=== PATIENT | female | born 1950 | race Caucasian/White ===

== ENCOUNTER 2018-05-05 20:49 | Inpatient (IN) | payer OTHER, MEDICAID ==
[~2018-05-05] VITALS: Ht 170.2 cm; Wt 66.7 kg
--- NOTE | ~2018-05-05 | MORECARE ---
CASE MANAGEMENT DISCHARGE SUMMARY PATIENT: SILVIO PATTEN UNIT: [id number] ADM DATE: 05/05/18 AGE: 67 : 50 SEX: F ROOM/BED: D.2312 AUTHOR: FAUSTO,DOC PHYSICIAN: REFERRING PHYSICIAN: ROZ LUNA MD DATE OF SERVICE: 05/08/18 Discharge Plan Patient Name: SILVIO PATTEN Facility: [facility]:[place] : 1950 Planned Disposition: Home Anticipated Discharge Date: Discharge Date: 05/07/2018 Expected LOS: Initial Reviewer: [email or web address] Initial Review Date: 05/05/2018 Generated: 05/08/18 2:01 pm Comments DCP- Discharge Planning Updated by [email or web address]: Olga Carlton on 05/07/18 1:[address] IMM explained and served @11:33 Patient denies any discharge needs at this time. CM will continue to follow and assist with discharge needs. DCP- Discharge Planning Updated by [email or web address]: Olga Carlton on 05/06/18 4:[address] Patient Name: SILVIO PATTEN Admission Status: ER Accout number: [id number] Admission Date: 05-05-2018 : 1950 Admission Diagnosis: Attending: ROZ LUNA Current LOS: 1 Anticipated DC Date: Planned Disposition: Home Primary Insurance: MEDICARE A & B Discharge Planning Comments: CM met with patient at bedside after obtaining verbal consent. Patient states she plans on returning home after discharge. Patient states she would like information on assistance with transportation to appointments. CM gave patient pamphlet on home care assistance. Patient denies any discharge needs at this time. CM will continue to follow and assist as needed for discharge planning / needs. Student Accounts Coordinator: Olga Carlton DCPIA - Discharge Planning Initial Assessment Updated by [email or web address]: Olga Carlton on 05/06/18 5:47 pm * Is the patient Alert and Oriented? Yes * How many steps to enter\exit or inside your home? * PCP Sunny * [facility] * Preadmission Environment Home Alone * ADLs Independent * Other Equipment 02 and neubulizer * List name and contact numbers for known caregivers / representatives who currently or will assist patient after discharge: Corrina Schwarz daughter [phone] * Verbal permission to speak to the caregivers and representatives has been obtained from the patient. N/A * Community resources currently utilized None * Additional services required to return to the preadmission environment? No * Can the patient safely return to the preadmission environment? Yes * Has this patient been hospitalized within the prior 30 days at any hospital? No Coverage Notice Reviewer: [id number] Raulito Carlton Notice Issued Date-Time: 05/07/2018 11:33 Notice Type: IM Discharge Notice Notice Delivered To: Patient Relationship to Patient: Self Foreign Exchange Clerk Name: Delivery Method: - [place] Days: Prior Verbal Notification: Recipient Understood Notice: Yes Recipient Signature: Yes Med Rec Note Co-signed by Attending: Coverage Notice Comment: Last DP export: 05/07/18 2:36 Patient Name: SILVIO PATTEN Page [id number] at 1301 All edits/amendments must be made on the electronic document DICTATION DATE: 05/08/18 1301 GEOPHYSICAL PROSPECTING PERMIT AGENT: BALJINDER 05/08/18 1301 RPT#: [id number] DC DATE:05/07/18 STATUS: DIS IN [facility] [address] [place] [address] END OF REPORT
[~2018-05-05 20:49] MED LIST: ALDACTONE25 MG PO; CARAFATE1 G PO; CHOLESTEROL MED PO; ENULOSE10 G/15 ML PO; GLIPIZIDE10 MG PO; GLUCOPHAGE1000 MG PO; KLONOPIN0.5 MG PO; OMEPRAZOLE20 M1 PO; SPIRIVA18 MCG INH; THEOCHRON200 MG PO; TRADJENTA5 MG PO; ULTRAM50 MG PO; ZOLOFT50 MG PO
[2018-05-05 23:00] VITALS: BP 130/68
[2018-05-05 23:04] VITALS: BP 149/69; BMI 23.0
[2018-05-06] VITALS (15 sets, daily range): BP systolic 111–138; BP diastolic 52–80; Ht 170.2 cm; Wt 66.7 kg
[2018-05-06 00:35] LABS: HEMATOCRIT 26.9 % (36.0-48.0); HEMOGLOBIN 8.5 g/dL (12-16)
[2018-05-06 04:45] LABS: INR 1.21 (0.85-1.17); PROTIME 14.9 SECONDS (11.6-15.0)
[2018-05-06 05:00] LABS: ALBUMIN 2.6 g/dL (3.4-5.0); ALKALINE PHOSPHATASE 130 U/L (46-116); ALT (SGPT) 22 U/L (10-68); CALC OSMOLALITY 282 mosm/kg (275-300); CALCIUM 8.5 mg/dL (8.5-10.1); CARBON DIOXIDE 24.3 mmol/L (21.0-32.0); CHLORIDE - SERUM 108 mmol/L (98-107); CREATININE - SERUM 0.8 mg/dL (0.6-1.3); POTASSIUM - SERUM 4.2 mmol/L (3.5-5.1); PROTEIN - SERUM 6.5 g/dL (6.4-8.2); SODIUM 141 mmol/L (136-145); UREA NITROGEN 13 mg/dL (7-18); eGFR NON AFRICAN AMERICAN 76 mL/min (90-120)
[2018-05-06 05:02] LABS: GLUCOSE 139 mg/dL (74-106)
[2018-05-06 05:08] LABS: BASOPHILS 0.6 % (0-2); EOSINOPHILS 5.3 % (0-7); HEMATOCRIT 27.2 % (36.0-48.0); HEMOGLOBIN 8.4 g/dL (12-16); IMMATURE GRANULOCYTES 0.3 % (0-5); LYMPHOCYTES 24.3 % (15-50); MCH 24.7 pg (26.0-34.0); MCHC 30.9 g/dL (31.0-37.0); MEAN PLATELET VOLUME 10.7 fL (7.4-10.4); MONOCYTES 10.3 % (2-11); NEUTROPHILS 59.2 % (40-80); PLATELET COUNT 113 10x3/uL (130-400); RDW 19.9 % (11.5-14.5); WBC 3.2 10x3/uL (4.8-10.8)
[2018-05-07 02:35] VITALS: BP 130/69
[2018-05-07 03:00] VITALS: BP 126/57
[2018-05-07 05:01] LABS: BASOPHILS 0.7 % (0-2); EOSINOPHILS 5.4 % (0-7); HEMATOCRIT 27.4 % (36.0-48.0); HEMOGLOBIN 8.1 g/dL (12-16); MCH 24.3 pg (26.0-34.0); MCHC 29.6 g/dL (31.0-37.0); MONOCYTES 11.9 % (2-11); PLATELET COUNT 116 10x3/uL (130-400); RBC 3.33 10x6/uL (4.00-5.40); WBC 2.9 10x3/uL (4.8-10.8)
[2018-05-07 05:31] LABS: MCV 82.3 fL (80.0-100.0)
[2018-05-07 05:34] LABS: ALBUMIN 2.6 g/dL (3.4-5.0); ALKALINE PHOSPHATASE 130 U/L (46-116); BILIRUBIN - TOTAL 0.64 mg/dL (0.2-1.3); CALC OSMOLALITY 275 mosm/kg (275-300); CALCIUM 8.2 mg/dL (8.5-10.1); CARBON DIOXIDE 23.3 mmol/L (21.0-32.0); CHLORIDE - SERUM 106 mmol/L (98-107); CREATININE - SERUM 0.8 mg/dL (0.6-1.3); GLUCOSE 117 mg/dL (74-106); PROTEIN - SERUM 6.4 g/dL (6.4-8.2); SODIUM 138 mmol/L (136-145); UREA NITROGEN 10 mg/dL (7-18); eGFR NON AFRICAN AMERICAN 76 mL/min (90-120)
[2018-05-07 05:37] LABS: ALT (SGPT) 29 U/L (10-68)
[2018-05-07 07:00] VITALS: BP 130/69
[2018-05-07] MEDS ORDERED: PROTONIX40 MG PO (11:00)
== END 2018-05-07 12:22 | disposition home or self-care (01) | DRG 378 ==
LOC: D.ER 20:49 → D.ICU 22:06
PROVIDERS: Family Medicine; Internal Medicine Gastroenterology
PROC: 0DB68ZX Excision of Stomach, Via Natural or Artificial Opening Endoscopic, Diagnostic (ICD-10-PCS; principal; 2018-05-06 06:51)
DX: K26.4 Chronic or unspecified duodenal ulcer with hemorrhage (principal); D62 Acute posthemorrhagic anemia; J96.11 Chronic respiratory failure with hypoxia; I85.00 Esophageal varices without bleeding; Z91.14 Patient's other noncompliance with medication regimen; K29.70 Gastritis, unspecified, without bleeding; K21.9 Gastro-esophageal reflux disease without esophagitis; J44.9 Chronic obstructive pulmonary disease, unspecified; E11.9 Type 2 diabetes mellitus without complications; I10 Essential (primary) hypertension

== ENCOUNTER 2018-06-19 20:42 | Inpatient (IN) | payer OTHER, MEDICAID ==
[~2018-06-19] VITALS: Ht 170.2 cm; Wt 76.1 kg
--- NOTE | ~2018-06-19 | MORECARE ---
CASE MANAGEMENT DISCHARGE SUMMARY PATIENT: SILVIO PATTEN UNIT: [id number] ADM DATE: 06/20/18 AGE: 67 : 50 SEX: F ROOM/BED: D.2224 AUTHOR: ROMEO LAMBERT PHYSICIAN: REFERRING PHYSICIAN: ROZ LUNA MD DATE OF SERVICE: 06/23/18 Discharge Plan Patient Name: SILVIO PATTEN Facility: [facility]:[place] : 1950 Planned Disposition: Home Anticipated Discharge Date: 06/23/18 Discharge Date: Expected LOS: 3 Initial Reviewer: [email or web address] Initial Review Date: 06/23/2018 Generated: 06/23/18 12:23 pm DCPIA - Discharge Planning Initial Assessment Updated by [email or web address]: Cherelle Galarza on 06/23/18 11:20 am * Is the patient Alert and Oriented? Yes * How many steps to enter\exit or inside your home? 0/0 * PCP Dr. Correa * [facility] * Preadmission Environment Home Alone * ADLs Independent * Equipment Nebulizer Oxygen * List name and contact numbers for known caregivers / representatives who currently or will assist patient after discharge: Corrina Chong [facility] - [phone] * Verbal permission to speak to the caregivers and representatives has been obtained from the patient. Yes * Community resources currently utilized None * Additional services required to return to the preadmission environment? No * Can the patient safely return to the preadmission environment? Yes * Has this patient been hospitalized within the prior 30 days at any hospital? Yes Patient Name: SILVIO PATTEN Page [id number] at 1123 All edits/amendments must be made on the electronic document DICTATION DATE: 06/23/181121 WEATHERCASTER: BALJINDER 06/23/181121 RPT#: [id number] DC DATE: STATUS: ADM IN [facility] [address] [place] [address] END OF REPORT
--- NOTE | ~2018-06-19 | MORECARE ---
CASE MANAGEMENT DISCHARGE SUMMARY PATIENT: SILVIO PATTEN UNIT: [id number] ADM DATE: 06/20/18 AGE: 67 : 50 SEX: F ROOM/BED: D.2224 AUTHOR: FAUSTODOC PHYSICIAN: REFERRING PHYSICIAN: ROZ LUNA MD DATE OF SERVICE: 06/25/18 Discharge Plan Patient Name: SILVIO PATTEN Facility: [facility]:[place] : 1950 Planned Disposition: Home Anticipated Discharge Date: 06/23/18 Discharge Date: 06/23/2018 Expected LOS: 3 Initial Reviewer: [email or web address] Initial Review Date: 06/23/2018 Generated: 06/25/18 11:35 am Comments DCP- Discharge Planning Updated by [email or web address]: Cherelle Galarza on 06/23/18 10:[address] Patient Name: SILVIO PATTEN Admission Status: ER Accout number: [id number] Admission Date: 06-20-2018 : 1950 Admission Diagnosis:GASTROINTESTINAL HEMORRHAGE, UNSPECIFIED Attending: ROZ LUNA Current LOS: 3 Anticipated DC Date: 06-23-2018 Planned Disposition: Home Primary Insurance: [email or web address] Discharge Planning Comments: CM met with patient and her daughter to discuss discharge planning. She lives alone in a one story house. She states she is independent with ADL's, except her daughter manages her med box and she only drives if "I have to". States she believes her oxygen DME is [employer]. States her daughter is living on her property in a . Her daughter states they will be there for about 6 months. I discussed availability of rehab, SNF, home health and additional DME. She states she does not need DME. Daughter states she would like her to have home health, but she would like to call them and see which one will be a "good fit" for her mother. I gave her the [facility] home health form to review and informed her to call her PCP when ready for [facility]. I also provided patient with SCAT number and informed to call them to get her in the system and informed her to call 48 hours in advance for transportation to medical appointments. They declines needs at this time. CM will continue to follow and assist with discharge planning/needs. Supervisor Feed Mill: Cherelle Galarza DCPIA - Discharge Planning Initial Assessment Updated by [email or web address]: Cherelle Galarza on 06/23/18 11:20 am * Is the patient Alert and Oriented? Yes * How many steps to enter\\exit or inside your home? 0/0 * PCP Dr. Correa * [facility] [address] [place] * Preadmission Environment Home Alone * ADLs Independent * Equipment Nebulizer Oxygen * List name and contact numbers for known caregivers / representatives who currently or will assist patient after discharge: Corrina Chong [facility] - [phone] * Verbal permission to speak to the caregivers and representatives has been obtained from the patient. Yes * Community resources currently utilized None * Additional services required to return to the preadmission environment? No * Can the patient safely return to the preadmission environment? Yes * Has this patient been hospitalized within the prior 30 days at any hospital? Yes Coverage Notice Reviewer: [email or web address] - Cherelle Galarza Notice Issued Date-Time: 06/23/2018 11:30 Notice Type: IM Discharge Notice Notice Delivered To: Patient Relationship to Patient: Self Traffic Court Magistrate Name: Delivery Method: HAND - Hand Delivered [place] Days: Prior Verbal Notification: Recipient Understood Notice: Yes Recipient Signature: Yes Med Rec Note Co-signed by Attending: Coverage Notice Comment: IMM explained, signed, copy given, original placed in MR Last DP export: 06/23/18 10:30 Patient Name: SILVIO PATTEN Page [phone] at 1035 All edits/amendments must be made on the electronic document DICTATION DATE: 06/25/18 1035 LABEL DRIER: BALJINDER 06/25/18 1035 RPT#: [id number] DC DATE:06/23/18 STATUS: DIS IN [facility] [address] [place] [address] END OF REPORT
--- NOTE | ~2018-06-19 | MORECARE ---
CASE MANAGEMENT DISCHARGE SUMMARY PATIENT: SILVIO PATTEN UNIT: [id number] ADM DATE: 06/20/18 AGE: 67 : 50 SEX: F ROOM/BED: D.2224 AUTHOR: ROMEO LAMBERT PHYSICIAN: REFERRING PHYSICIAN: ROZ LUNA MD DATE OF SERVICE: 06/23/18 Discharge Plan Patient Name: SILVIO PATTEN Facility: [facility]:[place] : 1950 Planned Disposition: Home Anticipated Discharge Date: 06/23/18 Discharge Date: Expected LOS: 3 Initial Reviewer: [email or web address] Initial Review Date: 06/23/2018 Generated: 06/23/18 12:30 pm Comments DCP- Discharge Planning Updated by [email or web address]: Cherelle Galarza on 06/23/18 10:[address] Patient Name: SILVIO PATTEN Admission Status: ER Accout number: [id number] Admission Date: 06-20-2018 : 1950 Admission Diagnosis:GASTROINTESTINAL HEMORRHAGE, UNSPECIFIED Attending: ROZ LUNA Current LOS: 3 Anticipated DC Date: 06-23-2018 Planned Disposition: Home Primary Insurance: [employer] Discharge Planning Comments: CM met with patient and her daughter to discuss discharge planning. She lives alone in a one story house. She states she is independent with ADL's, except her daughter manages her med box and she only drives if "I have to". States she believes her oxygen DME is [facility]. States her daughter is living on her property in a . Her daughter states they will be there for about 6 months. I discussed availability of rehab, SNF, home health and additional DME. She states she does not need DME. Daughter states she would like her to have home health, but she would like to call them and see which one will be a "good fit" for her mother. I gave her the [facility] home health form to review and informed her to call her PCP when ready for [facility]. I also provided patient with SCAT number and informed to call them to get her in the system and informed her to call 48 hours in advance for transportation to medical appointments. They declines needs at this time. CM will continue to follow and assist with discharge planning/needs. Manager Drive: Cherelle Galarza DCPIA - Discharge Planning Initial Assessment Updated by [email or web address]: Cherelle Galarza on 06/23/18 11:20 am * Is the patient Alert and Oriented? Yes * How many steps to enter\\exit or inside your home? 0/0 * PCP Dr. Correa * [facility] [address] * Preadmission Environment Home Alone * ADLs Independent * Equipment Nebulizer Oxygen * List name and contact numbers for known caregivers / representatives who currently or will assist patient after discharge: Corrina Schwarz [facility] - [phone] * Verbal permission to speak to the caregivers and representatives has been obtained from the patient. Yes * Community resources currently utilized None * Additional services required to return to the preadmission environment? No * Can the patient safely return to the preadmission environment? Yes * Has this patient been hospitalized within the prior 30 days at any hospital? Yes Coverage Notice Reviewer: [id number] - Cherelle Galarza Notice Issued Date-Time: 06/23/2018 11:30 Notice Type: IM Discharge Notice Notice Delivered To: Patient Relationship to Patient: Self Yoga Coordinator Name: Delivery Method: - [place] Days: Prior Verbal Notification: Recipient Understood Notice: Recipient Signature: Med Rec Note Co-signed by Attending: Coverage Notice Comment: Last DP export: 06/23/18 10:23 Patient Name: SILVIO PATTEN Page [phone] at 1131 All edits/amendments must be made on the electronic document DICTATION DATE: 06/23/18 113 LINOTYPIST: BALJINDER 06/23/18 1130 RPT#: [id number] NM DATE: STATUS: ADM IN [facility] [address] [place] [address] END OF REPORT
[~2018-06-19 20:42] MED LIST changes: +PROTONIX40 MG PO
[2018-06-19 21:07] VITALS: BP 135/85
[2018-06-19 21:11] LABS: ALBUMIN 3.4 g/dL (3.4-5.0); ALKALINE PHOSPHATASE 167 U/L (46-116); ALT (SGPT) 31 U/L (10-68); BILIRUBIN - TOTAL 0.51 mg/dL (0.2-1.3); CALC OSMOLALITY 280 mosm/kg (275-300); CALCIUM 11.4 mg/dL (8.5-10.1); CHLORIDE - SERUM 92 mmol/L (98-107); CREATININE - SERUM 1.6 mg/dL (0.6-1.3); POTASSIUM - SERUM 3.9 mmol/L (3.5-5.1); PROTEIN - SERUM 8.5 g/dL (6.4-8.2); SODIUM 132 mmol/L (136-145); UREA NITROGEN 41 mg/dL (7-18); eGFR NON AFRICAN AMERICAN 34 mL/min (90-120)
[2018-06-19 21:12] LABS: GLUCOSE 206 mg/dL (74-106)
[2018-06-19 21:14] LABS: AMYLASE - SERUM 35 U/L (25-115); LIPASE 310 U/L (73-393)
[2018-06-19 21:15] LABS: BASOPHILS 0.8 % (0-2); EOSINOPHILS 2.2 % (0-7); HEMATOCRIT 30.4 % (36.0-48.0); HEMOGLOBIN 9.3 g/dL (12-16); IMMATURE GRANULOCYTES 0.3 % (0-5); LYMPHOCYTES 14.1 % (15-50); MCH 25.1 pg (26.0-34.0); MCHC 30.6 g/dL (31.0-37.0); MCV 81.9 fL (80.0-100.0); MONOCYTES 7.4 % (2-11); NEUTROPHILS 75.2 % (40-80); RBC 3.71 10x6/uL (4.00-5.40); RDW 24.5 % (11.5-14.5); TROPONIN-I < 0.017 ng/mL (0.000-0.060); WBC 9.6 10x3/uL (4.8-10.8)
[2018-06-19 21:21] LABS: PLATELET COUNT 191 10x3/uL (130-400)
[2018-06-19 21:27] VITALS: BP 109/52
[2018-06-19 22:13] LABS: APPEARANCE CLEAR (CLEAR); COLOR YELLOW (YELLOW); NITRITE NEGATIVE (NEGATIVE); PROTEIN NEGATIVE (NEGATIVE)
[2018-06-19 22:14] LABS: BILIRUBIN NEGATIVE (NEGATIVE); EPITHELIAL CELLS OCC /hpf (0-5); GLUCOSE 250 mg/dL (NEGATIVE); KETONE NEGATIVE (NEGATIVE); RED CELLS - URINE NONE SEEN /hpf (0-5); UROBILINOGEN NORMAL (NORMAL); WHITE CELLS - URINE NSEEN /hpf (0-5)
[2018-06-19 22:25] VITALS: BP 111/72
[2018-06-20] VITALS (15 sets, daily range): BP systolic 101–145; BP diastolic 46–93; Ht 170.2 cm; Wt 76.1 kg
[2018-06-20] MEDS ORDERED: CHRONULAC30 ML PO (02:08)
[2018-06-20] MEDS ORDERED: ULTRAM50 MG PO (02:13)
[2018-06-20 05:19] LABS: BASOPHILS 0.5 % (0-2); EOSINOPHILS 2.7 % (0-7); IMMATURE GRANULOCYTES 0.1 % (0-5); LYMPHOCYTES 15.9 % (15-50); MCH 24.9 pg (26.0-34.0); MCHC 30.5 g/dL (31.0-37.0); MCV 81.8 fL (80.0-100.0); MONOCYTES 6.7 % (2-11); NEUTROPHILS 74.1 % (40-80); RBC 2.97 10x6/uL (4.00-5.40); RDW 24.7 % (11.5-14.5); WBC 9.1 10x3/uL (4.8-10.8)
[2018-06-20 05:22] LABS: HEMATOCRIT 24.3 % (36.0-48.0); HEMOGLOBIN 7.4 g/dL (12-16); PLATELET COUNT 134 10x3/uL (130-400)
[2018-06-20 12:34] LABS: INR 1.15 (0.85-1.17); PROTIME 14.2 SECONDS (11.6-15.0)
[2018-06-20 12:35] LABS: APTT 28.6 SECONDS (22.8-39.4)
[2018-06-20 14:00] LABS: UDS - AMPHET NEGATIVE QUAL (NEGATIVE); UDS - BARB NEGATIVE QUAL (NEGATIVE); UDS - BENZO NEGATIVE QUAL (NEGATIVE); UDS - COCAINE NEGATIVE QUAL (NEGATIVE); UDS - OPIATE POSITIVE QUAL (NEGATIVE); UDS - PCP NEGATIVE QUAL (NEGATIVE); UDS - THC NEGATIVE QUAL (NEGATIVE)
[2018-06-20 15:11] LABS: BASOPHILS 0.4 % (0-2); EOSINOPHILS 4.2 % (0-7); HEMATOCRIT 31.3 % (36.0-48.0); HEMOGLOBIN 9.8 g/dL (12-16); IMMATURE GRANULOCYTES 0.2 % (0-5); LYMPHOCYTES 17.7 % (15-50); MCH 26.1 pg (26.0-34.0); MCHC 31.3 g/dL (31.0-37.0); MCV 83.2 fL (80.0-100.0); MONOCYTES 7.5 % (2-11); RBC 3.76 10x6/uL (4.00-5.40); RDW 21.1 % (11.5-14.5); WBC 5.5 10x3/uL (4.8-10.8)
[2018-06-20 15:12] LABS: PLATELET COUNT 82 10x3/uL (130-400)
[2018-06-20 15:27] LABS: ANION GAP 10.7 mmol/L (8-16); CALCIUM 9.3 mg/dL (8.5-10.1); CARBON DIOXIDE 28.2 mmol/L (21.0-32.0); CREATININE - SERUM 1.3 mg/dL (0.6-1.3); POTASSIUM - SERUM 3.9 mmol/L (3.5-5.1)
[2018-06-20 21:26] LABS: BASOPHILS 0.4 % (0-2); EOSINOPHILS 4.7 % (0-7); HEMATOCRIT 30.9 % (36.0-48.0); HEMOGLOBIN 9.7 g/dL (12-16); IMMATURE GRANULOCYTES 0.2 % (0-5); LYMPHOCYTES 19.2 % (15-50); MCH 26.2 pg (26.0-34.0); MCHC 31.4 g/dL (31.0-37.0); MCV 83.5 fL (80.0-100.0); MONOCYTES 10.3 % (2-11); NEUTROPHILS 65.2 % (40-80); PLATELET COUNT 89 10x3/uL (130-400); RDW 21.2 % (11.5-14.5); WBC 4.9 10x3/uL (4.8-10.8)
[2018-06-21] VITALS (10 sets, daily range): BP systolic 101–126; BP diastolic 56–75
[2018-06-21 03:46] LABS: BASOPHILS 0.8 % (0-2); EOSINOPHILS 6.1 % (0-7); HEMATOCRIT 30.7 % (36.0-48.0); HEMOGLOBIN 9.6 g/dL (12-16); IMMATURE GRANULOCYTES 0.3 % (0-5); LYMPHOCYTES 20.5 % (15-50); MCH 26.1 pg (26.0-34.0); MCHC 31.3 g/dL (31.0-37.0); MCV 83.4 fL (80.0-100.0); MONOCYTES 9.6 % (2-11); NEUTROPHILS 62.7 % (40-80); RBC 3.68 10x6/uL (4.00-5.40); RDW 21.6 % (11.5-14.5); WBC 3.8 10x3/uL (4.8-10.8)
[2018-06-21 03:47] LABS: PLATELET COUNT 108 10x3/uL (130-400)
[2018-06-21 03:56] LABS: INR 1.18 (0.85-1.17); PROTIME 14.5 SECONDS (11.6-15.0)
[2018-06-21 04:04] LABS: ALBUMIN 2.7 g/dL (3.4-5.0); ANION GAP 9.2 mmol/L (8-16); BILIRUBIN - TOTAL 0.68 mg/dL (0.2-1.3); CALCIUM 8.5 mg/dL (8.5-10.1); CARBON DIOXIDE 29.5 mmol/L (21.0-32.0); POTASSIUM - SERUM 3.7 mmol/L (3.5-5.1); PROTEIN - SERUM 6.6 g/dL (6.4-8.2)
[2018-06-21 04:07] LABS: CREATININE - SERUM 0.9 mg/dL (0.6-1.3)
[2018-06-21 13:31] LABS: BASOPHILS 0.3 % (0-2); EOSINOPHILS 4.8 % (0-7); HEMATOCRIT 29.9 % (36.0-48.0); HEMOGLOBIN 9.1 g/dL (12-16); IMMATURE GRANULOCYTES 0.3 % (0-5); LYMPHOCYTES 14.5 % (15-50); MCHC 30.4 g/dL (31.0-37.0); RDW 21.8 % (11.5-14.5); WBC 3.3 10x3/uL (4.8-10.8)
[2018-06-21 13:44] LABS: MCV 85.4 fL (80.0-100.0); NEUTROPHILS 71.11 % (40-80); PLATELET COUNT 85 10x3/uL (130-400)
[2018-06-21 14:04] LABS: PLATELET ESTIMATE DECREASED
[2018-06-22] VITALS (7 sets, daily range): BP systolic 107–138; BP diastolic 51–81
[2018-06-22 06:24] LABS: ALBUMIN 2.4 g/dL (3.4-5.0); ALKALINE PHOSPHATASE 93 U/L (46-116); ALT (SGPT) 22 U/L (10-68); AMYLASE - SERUM 54 U/L (25-115); BILIRUBIN - TOTAL 0.52 mg/dL (0.2-1.3); CALCIUM 7.5 mg/dL (8.5-10.1); CARBON DIOXIDE 25.1 mmol/L (21.0-32.0); CHLORIDE - SERUM 107 mmol/L (98-107); CREATININE - SERUM 0.8 mg/dL (0.6-1.3); LIPASE 369 U/L (73-393); POTASSIUM - SERUM 3.6 mmol/L (3.5-5.1); PROTEIN - SERUM 6.1 g/dL (6.4-8.2); SODIUM 139 mmol/L (136-145); eGFR NON AFRICAN AMERICAN 76 mL/min (90-120)
[2018-06-22 06:28] LABS: CALC OSMOLALITY 282 mosm/kg (275-300); GLUCOSE 170 mg/dL (74-106); UREA NITROGEN 15 mg/dL (7-18)
[2018-06-22 07:27] LABS: BASOPHILS 0.7 % (0-2); EOSINOPHILS 5.9 % (0-7); HEMATOCRIT 28.2 % (36.0-48.0); HEMOGLOBIN 8.6 g/dL (12-16); LYMPHOCYTES 18.1 % (15-50); MCH 25.8 pg (26.0-34.0); MCHC 30.5 g/dL (31.0-37.0); MCV 84.7 fL (80.0-100.0); MONOCYTES 9.8 % (2-11); NEUTROPHILS 65.5 % (40-80); PLATELET COUNT 89 10x3/uL (130-400); RBC 3.33 10x6/uL (4.00-5.40); RDW 21.8 % (11.5-14.5); WBC 2.9 10x3/uL (4.8-10.8)
[2018-06-23 00:18] VITALS: BP 116/55
[2018-06-23 04:29] VITALS: BP 138/58
[2018-06-23 05:17] LABS: BASOPHILS 0.3 % (0-2); EOSINOPHILS 4.3 % (0-7); HEMATOCRIT 30.2 % (36.0-48.0); HEMOGLOBIN 9.3 g/dL (12-16); LYMPHOCYTES 17.7 % (15-50); MCH 26.1 pg (26.0-34.0); MCHC 30.8 g/dL (31.0-37.0); MCV 84.6 fL (80.0-100.0); MONOCYTES 9.7 % (2-11); PLATELET COUNT 85 10x3/uL (130-400); RBC 3.57 10x6/uL (4.00-5.40); RDW 21.5 % (11.5-14.5)
[2018-06-23 05:49] LABS: ALBUMIN 2.5 g/dL (3.4-5.0); ALKALINE PHOSPHATASE 110 U/L (46-116); AMYLASE - SERUM 43 U/L (25-115); BILIRUBIN - TOTAL 0.66 mg/dL (0.2-1.3); CALCIUM 7.9 mg/dL (8.5-10.1); CARBON DIOXIDE 25.8 mmol/L (21.0-32.0); CHLORIDE - SERUM 108 mmol/L (98-107); CREATININE - SERUM 0.6 mg/dL (0.6-1.3); GLUCOSE 141 mg/dL (74-106); LIPASE 285 U/L (73-393); POTASSIUM - SERUM 3.5 mmol/L (3.5-5.1); PROTEIN - SERUM 6.4 g/dL (6.4-8.2); SODIUM 140 mmol/L (136-145); eGFR NON AFRICAN AMERICAN > 90 mL/min (90-120)
[2018-06-23 06:18] LABS: ALT (SGPT) 30 U/L (10-68); CALC OSMOLALITY 279 mosm/kg (275-300); UREA NITROGEN 11 mg/dL (7-18)
[2018-06-23 08:14] VITALS: BP 144/76
[2018-06-23] MEDS ORDERED: CARAFATE1 G PO (11:43)
[2018-06-23] MEDS ORDERED: PEPCID40 MG PO (11:44)
[2018-06-23] MEDS ORDERED: PROTONIX40 MG PO (11:44)
== END 2018-06-23 13:55 | disposition home or self-care (01) | DRG 378 ==
LOC: D.ER 20:42 → D.M2 06-20 01:24 → OBSVTIME 06-20 01:24 → D.ICU 06-20 01:25 → D.MS 06-20 01:25 → D.ICU 06-20 14:11 → D.MS 06-21 20:30
PROVIDERS: Family Medicine; Internal Medicine Gastroenterology; Internal Medicine Nephrology
PROC: 0W3P8ZZ Control Bleeding in Gastrointestinal Tract, Via Natural or Artificial Opening Endoscopic (ICD-10-PCS; principal; 2018-06-20 13:30)
DX: K26.4 Chronic or unspecified duodenal ulcer with hemorrhage (principal); N17.9 Acute kidney failure, unspecified; E87.1 Hypo-osmolality and hyponatremia; K22.10 Ulcer of esophagus without bleeding; F17.213 Nicotine dependence, cigarettes, with withdrawal; J96.11 Chronic respiratory failure with hypoxia; E86.0 Dehydration; I10 Essential (primary) hypertension; R78.5 Finding of other psychotropic drug in blood; E11.9 Type 2 diabetes mellitus without complications; J44.9 Chronic obstructive pulmonary disease, unspecified; K80.20 Calculus of gallbladder without cholecystitis without obstruction; K25.9 Gastric ulcer, unspecified as acute or chronic, without hemorrhage or perforation

== ENCOUNTER 2018-10-20 05:39 | Day surgery (SDC) | payer OTHER, MEDICAID ==
[~2018-10-20] VITALS: Ht 170.2 cm; Wt 63.6 kg
[~2018-10-20 05:39] MED LIST changes: +CHRONULAC30 ML PO; +PEPCID40 MG PO
[2018-10-20] MEDS ORDERED: ZOFRAN ODT4 MG/UDTAB (06:25)
[2018-10-20] MEDS ORDERED: UNKNOWN ANTIBIOTIC (06:26)
[2018-10-20 06:30] LABS: BASOPHILS 0.6 % (0-2); EOSINOPHILS 11.2 % (0-7); HEMOGLOBIN 11.2 g/dL (12-16); IMMATURE GRANULOCYTES 0.2 % (0-5); LYMPHOCYTES 17.8 % (15-50); MCH 30.9 pg (26.0-34.0); MCV 96.7 fL (80.0-100.0); MEAN PLATELET VOLUME 10.7 fL (7.4-10.4); MONOCYTES 10.1 % (2-11); NEUTROPHILS 60.1 % (40-80); RBC 3.62 10x6/uL (4.00-5.40); RDW 15.8 % (11.5-14.5); WBC 4.8 10x3/uL (4.8-10.8)
[2018-10-20 06:49] VITALS: BP 113/68; Ht 170.2 cm; Wt 63.6 kg
[2018-10-20 06:49] LABS: PLATELET COUNT 173 10x3/uL (130-400)
[2018-10-20 06:56] LABS: ALBUMIN 2.7 g/dL (3.4-5.0); ANION GAP 13.5 mmol/L (8-16); BILIRUBIN - TOTAL 0.41 mg/dL (0.2-1.3); CALCIUM 8.8 mg/dL (8.5-10.1); CARBON DIOXIDE 25.1 mmol/L (21.0-32.0); POTASSIUM - SERUM 3.6 mmol/L (3.5-5.1); PROTEIN - SERUM 6.9 g/dL (6.4-8.2)
--- NOTE | 2018-10-20 07:15 | NUR ---
0705 CHEMISTRY RESULTS AVAILABLE TO VIEW. BS=64. ORDER FROM ANESTHESIA RECEIVED FOR 1/2 AMP D50W.
--- NOTE | 2018-10-20 07:33 | NUR ---
0725 REPEAT BLOOD SUGAR DONE AFTER D50W 1/2 AMP GIVEN. RESULTS ARE 137 AND REPORTED TO TIFFANY HAY CRNA.
[2018-10-20 07:35] LABS: INR 1.2 (0.85-1.17); PROTIME 14.7 SECONDS (11.6-15.0)
--- NOTE | 2018-10-20 09:21 | NUR ---
DC INSTRUCTIONS GIVEN TO PT. STATES UNDERSTANDING. DC'D IV CATH FULLY INTACT.
--- NOTE | 2018-10-20 10:18 | NUR ---
PT LEFT UNIT VIA WC AT 0913
--- NOTE | 2018-10-20 15:55 | OP ---
PATIENT NAME: SILVIO PATTEN MEDICAL RECORD: [id number] :[birth year] LOCATION:[facility] ADMISSION DATE: SURGEON: MARCIANO MOONEY MD DATE OF OPERATION: 10/20/2018 PROCEDURE: EGD with biopsy. INDICATIONS: Ms. Patten is a 68-year-old woman with a history of cirrhosis secondary to alcohol. She had an upper GI bleed last fall. On 06/20/2018, she underwent an EGD (Dr. Goldstein) with findings of a large nonhemorrhagic esophageal varices, gastropathy of portal hypertension, htzh-if-nnihwhqj gastritis, duodenitis and a hemorrhagic linear ulcer measuring approximately 3.5 cm in the C-loop which was injected with a total of 2.5 cc of 1:10,000 epinephrine with good results. Additionally, she has a history of cholelithiasis. She has been on Protonix 40 mg p.o. b.i.d. She presents for followup EGD. PREMEDICATIONS: Total IV anesthesia (propofol 200 mg). INSTRUMENT: Olympus video gastroscope. PROCEDURE AND FINDINGS: After receiving informed consent, posterior pharynx was anesthetized with Cetacaine spray. She was placed in left lateral decubitus position and sedated as per anesthesia. After achieving adequate level of sedation, gastroscope was introduced per orally and advanced into the duodenum without difficulty. Esophagus was remarkable for grade III esophageal varices, nonhemorrhagic, extending from the nsf-zm-xlszrs esophagus. There was no stigmata of recent bleeding. Small hiatal hernia was present. Gastric mucosa was notable for a reticulated pattern in the body and fundus of the stomach consistent with gastropathy of portal hypertension. There were a few brown pigments spots in the body of the stomach consistent with mild bleeding. There was rjwp-er-gumwylsh patchy erythema in the antrum and antral biopsies were obtained to rule out Helicobacter pylori. No distinct varices were appreciated in the cardia or fundus. Pylorus was patent and competent. Duodenal mucosa was without erythema or ulcers and appeared normal through the second portion. The duodenum ulcer had healed. Gastroscope was then withdrawn. Ms. Patten tolerated the procedure well, no immediate complications. ASSESSMENT: 1. Grade III esophageal varices, nonhemorrhagic. 2. Small hiatal hernia. 3. Mild gastropathy of portal hypertension. 4. Mild gastritis. 5. Healed duodenal ulcer. RECOMMENDATIONS: 1. Continue propranolol 20 mg 3 times a day. 2. Continue Protonix 40 mg p.o. b.i.d. TRANSINT:[id number] Voice Confirmation ID: [id number] DOCUMENT ID: [id number] OPERATIVE REPORT [id number] SILVIO PATTEN TERRI MD at 1555 CC: SALLY COLVIN MD [id number] DICTATION DATE: 10/20/18826 WOOD GOUGER: 10/20/18 114[address] [facility] 10/20/18 [id number] [place] [address]
== END 2018-10-20 09:45 | disposition home or self-care (01) ==
LOC: D.OPS 05:39
PROVIDERS: Anesthesiology; ATTEND Internal Medicine Gastroenterology
DX: K70.30 Alcoholic cirrhosis of liver without ascites (principal); I85.10 Secondary esophageal varices without bleeding; K44.9 Diaphragmatic hernia without obstruction or gangrene; K76.6 Portal hypertension; K31.89 Other diseases of stomach and duodenum; K29.50 Unspecified chronic gastritis without bleeding; Z79.899 Other long term (current) drug therapy; Z01.812 Encounter for preprocedural laboratory examination

== ENCOUNTER 2019-07-26 10:44 | Inpatient (IN) | payer OTHER, MEDICAID ==
[2019-07-26] VITALS (12 sets, daily range): BP systolic 92–127; BP diastolic 48–78; BMI 20.7
[~2019-07-26] VITALS: Ht 170.2 cm; Wt 60.0 kg
[~2019-07-26 10:44] MED LIST changes: +UNKNOWN ANTIBIOTIC; +ZOFRAN ODT4 MG/UDTAB PO
[2019-07-26 11:33] LABS: ANION GAP 11.7 mmol/L (8-16); BASOPHILS 0.4 % (0-2); CALCIUM 9.1 mg/dL (8.5-10.1); CARBON DIOXIDE 30.5 mmol/L (21.0-32.0); CREATININE - SERUM 1.5 mg/dL (0.6-1.3); EOSINOPHILS 1.9 % (0-7); HEMATOCRIT 29.4 % (36.0-48.0); HEMOGLOBIN 9.4 g/dL (12-16); IMMATURE GRANULOCYTES 0.2 % (0-5); LYMPHOCYTES 8.4 % (15-50); MCH 30.2 pg (26.0-34.0); MCV 94.5 fL (80.0-100.0); MEAN PLATELET VOLUME 11.4 fL (7.4-10.4); MONOCYTES 6.5 % (2-11); NEUTROPHILS 82.6 % (40-80); POTASSIUM - SERUM 5.2 mmol/L (3.5-5.1); RBC 3.11 10x6/uL (4.00-5.40); RDW 14.2 % (11.5-14.5); WBC 10.7 10x3/uL (4.8-10.8)
[2019-07-26 11:35] LABS: ALBUMIN 2.7 g/dL (3.4-5.0); BILIRUBIN - TOTAL 0.81 mg/dL (0.2-1.3); PROTEIN - SERUM 6.9 g/dL (6.4-8.2)
[2019-07-26 11:40] LABS: PLATELET COUNT 255 10x3/uL (130-400)
[2019-07-26 11:58] LABS: APTT 33.2 SECONDS (22.8-39.4); INR 1.31 (0.85-1.17); PROTIME 15.7 SECONDS (11.6-15.0)
--- NOTE | 2019-07-26 13:57 | NUR ---
PT HAD 600 MLS BLOODY DARK EMESIS WHILE IN ER.
--- NOTE | 2019-07-26 13:58 | NUR ---
PT NPO DURING ENTIRE ED STAY
--- NOTE | 2019-07-26 14:15 | NUR ---
DR CHA PAGED GIVEN UPDATE. NEW ORDERS RECEIVED. CONSENTS OBTAINED
--- NOTE | 2019-07-26 14:20 | NUR ---
PT ARRIVED VSS ADMIT COMPLETE DENIES NEEDS WILL CONTIUE TO MONITOR
--- NOTE | 2019-07-26 15:25 | NUR ---
GI TEAM AT BEDSIDE SETTING UP FOR PROCEDURE. PT VOMITTING MAROON EMESIS.
--- NOTE | 2019-07-26 16:29 | NUR ---
DR CHA FINISHED AT BEDSIDE EGD WITH 4 BANDS PLACED.
--- NOTE | 2019-07-26 17:00 | NUR ---
FAMILY AT BEDSIDE GIVEN UDPATE. WILL CONTINUE TO MONITOR
--- NOTE | 2019-07-26 19:00 | NUR ---
REPORT RECEIVED, SHIFT ASSESSMENT COMPLETE, PT IS ALERT AND ORIENTED, ON 2L NC WITH 97% O2 SAT. ALL PPP, VSS, CALL LIGHT IN REACH
--- NOTE | 2019-07-26 21:11 | NUR ---
PT RESTING AT THIS TIME, WILL CON'T TO MONITOR
--- NOTE | 2019-07-26 23:25 | NUR ---
REASSESSMENT COMPLETE, NO CHANGES NOTED, WILL CON'T TO MONITOR
[2019-07-27] VITALS (12 sets, daily range): BP systolic 90–122; BP diastolic 50–81; Ht 170.2 cm; Wt 60.0 kg
--- NOTE | 2019-07-27 01:15 | NUR ---
PT RESTING WITH EYES CLOSED, VSS, CALL LIGHT IN REACH
--- NOTE | 2019-07-27 03:20 | NUR ---
REASSESSMENT COMPLETE, PT UPTO BSC AT THIS TIME, TOLERATED WELL
[2019-07-27 03:55] LABS: BASOPHILS 0.5 % (0-2); EOSINOPHILS 3.5 % (0-7); HEMATOCRIT 27.8 % (36.0-48.0); IMMATURE GRANULOCYTES 0.1 % (0-5); LYMPHOCYTES 15.9 % (15-50); MCH 29.3 pg (26.0-34.0); MCHC 32.4 g/dL (31.0-37.0); MEAN PLATELET VOLUME 10.8 fL (7.4-10.4); MONOCYTES 8.7 % (2-11); NEUTROPHILS 71.3 % (40-80); RBC 3.07 10x6/uL (4.00-5.40); RDW 16.3 % (11.5-14.5); WBC 9.1 10x3/uL (4.8-10.8)
[2019-07-27 04:24] LABS: ALBUMIN 2.6 g/dL (3.4-5.0); BILIRUBIN - TOTAL 0.54 mg/dL (0.2-1.3); CALCIUM 8.6 mg/dL (8.5-10.1); CARBON DIOXIDE 28.9 mmol/L (21.0-32.0); MAGNESIUM - SERUM 1.6 mg/dL (1.8-2.4); PROTEIN - SERUM 6.2 g/dL (6.4-8.2)
[2019-07-27 04:42] LABS: ANION GAP 12.4 mmol/L (8-16); CREATININE - SERUM 1.9 mg/dL (0.6-1.3); POTASSIUM - SERUM 4.3 mmol/L (3.5-5.1)
[2019-07-27 04:47] LABS: MCV 90.6 fL (80.0-100.0); PLATELET COUNT 157 10x3/uL (130-400)
--- NOTE | 2019-07-27 05:22 | NUR ---
PT RESTING COMFORTABLY AT THIS TIME, NO NEEDS NOTED, WILL CON'T TO MONITOR
--- NOTE | 2019-07-27 07:15 | NUR ---
REPORT RECEIVED. ASSESSMENT COMPLETE PER FLOW SHEET. VSS PT GIVEN BREAKFAST DENIES NEEDS WILL CONTINUE TKO MONITOR
--- NOTE | 2019-07-27 07:40 | NUR ---
DR CHA AT BEDSIDE GIVEN UDPATE. NEW ORDERS RECEIVECD
--- NOTE | 2019-07-27 09:00 | NUR ---
PT SLEEPING COMFORTABLY NO NEW CHANGES WILL CONTINUE TO MONITOR
--- NOTE | 2019-07-27 11:00 | NUR ---
NO NEW CHANGES PT RESTING COMFORTABLY WILL CONTINUE TOMONITOR
--- NOTE | 2019-07-27 13:00 | NUR ---
GIVEN ICE WATER PER REQUEST DENIES FURTHER NEEDS
--- NOTE | 2019-07-27 15:00 | NUR ---
NO NEW CHANGES PT ASSISTED UP OOB TO BEDSIDE COMMODE 150 CC NOTED
--- NOTE | 2019-07-27 16:55 | NUR ---
REPORT CALLED TO 2210 VSS UPON TRANSFER. TRANSFERED VIA WHEELCHAIR
[2019-07-28 00:30] VITALS: BP 154/65
[2019-07-28 05:18] LABS: ALBUMIN 2.4 g/dL (3.4-5.0); ANION GAP 13.1 mmol/L (8-16); BILIRUBIN - TOTAL 0.4 mg/dL (0.2-1.3); CALCIUM 8.4 mg/dL (8.5-10.1); CARBON DIOXIDE 25.7 mmol/L (21.0-32.0); MAGNESIUM - SERUM 1.7 mg/dL (1.8-2.4); POTASSIUM - SERUM 3.8 mmol/L (3.5-5.1); PROTEIN - SERUM 5.8 g/dL (6.4-8.2)
[2019-07-28 05:30] VITALS: BP 148/64
[2019-07-28 05:36] LABS: CREATININE - SERUM 1.3 mg/dL (0.6-1.3)
[2019-07-28 05:58] LABS: BASOPHILS 0.3 % (0-2); EOSINOPHILS 4.5 % (0-7); IMMATURE GRANULOCYTES 0.3 % (0-5); LYMPHOCYTES 16.5 % (15-50); MCH 29.5 pg (26.0-34.0); MCHC 32.4 g/dL (31.0-37.0); MCV 90.9 fL (80.0-100.0); MEAN PLATELET VOLUME 10.5 fL (7.4-10.4); MONOCYTES 7.7 % (2-11); NEUTROPHILS 70.7 % (40-80); RDW 15.9 % (11.5-14.5)
[2019-07-28 05:59] LABS: HEMATOCRIT 21.9 % (36.0-48.0); PLATELET COUNT 101 10x3/uL (130-400); RBC 2.41 10x6/uL (4.00-5.40)
[2019-07-28 06:00] LABS: HEMOGLOBIN 7.1 g/dL (12-16)
--- NOTE | 2019-07-28 06:27 | NUR ---
Patient had critical lab HGB of 7.1. Talked to Gisele Addison on phone. Order to repeat CBC. If HGB is still below 8 then type and cross patient and hang 2 units of PRBC's. Will pass this message on to the dayshift nurse.
[2019-07-28 06:51] LABS: INR 1.2 (0.85-1.17); PROTIME 14.6 SECONDS (11.6-15.0)
[2019-07-28 06:53] LABS: % SATURATION 19 % (15-55); IRON 44 ug/dl (35-150); TOTAL IRON BIND CAPACITY 231 ug/dl (260-445); UNSAT IRON BIND CAPACITY 187 ug/dl (150-375)
[2019-07-28 07:01] LABS: BASOPHILS 0.8 % (0-2); EOSINOPHILS 5.8 % (0-7); LYMPHOCYTES 15.9 % (15-50); MCH 29.3 pg (26.0-34.0); MCHC 32.3 g/dL (31.0-37.0); MCV 90.9 fL (80.0-100.0); MEAN PLATELET VOLUME 10.6 fL (7.4-10.4); MONOCYTES 6.8 % (2-11); NEUTROPHILS 70.7 % (40-80); PLATELET COUNT 96 10x3/uL (130-400); RBC 2.42 10x6/uL (4.00-5.40); RDW 15.9 % (11.5-14.5)
[2019-07-28 07:28] LABS: HEMOGLOBIN 7.1 g/dL (12-16)
--- NOTE | 2019-07-28 07:48 | NUR ---
PT SITTING UP IN BED. RR EVEN AND UNLABORED. USUALLY ON 2L NC, HOWEVER, PT DOES NOT HAVE IT ON AT THE MOMENT. MALT LIQUORS SALES SUPERVISOR AT BEDISDE. IS AWARE OF HGB 7.1. BLOOD BANK IS AWARE OF 2 UNITS PRBC ORDER. PT DENIES NEEDS OR PAIN AT THIS TIME. AXO. CALL LIGHT WITHIN REACH. BED IN LOWEST POSITION. WILL CONTINUE TO MONITOR.
[2019-07-28 08:40] VITALS: BP 122/51
--- NOTE | 2019-07-28 08:40 | NUR ---
BLOOD INFUSION INITIATED TO PIV RIGHT FOREARM. BP 118/61. PULSE 81. RR 16. TEMP 98.8. O2 98% ON 2L NC. INITIATED AND INFORMATION CHECKED WITH CARLY CAM. BLOOD INFUSING @75 MLS/HR. AWAKE, AXO. DENIES NEEDS AT THIS TIME. WILL CONTINUE TO MONITOR.
--- NOTE | 2019-07-28 13:08 | NUR ---
LEFT FOREARM IV RED AND SWOLLEN. IV REMOVED AND DRESSING APPLIED TO SITE. 22G IV RESITED TO LEFT FOREARM X1 ATTEMPT
[2019-07-28 13:45] VITALS: BP 134/61
[2019-07-28 16:56] VITALS: BP 124/49
--- NOTE | 2019-07-28 17:04 | NUR ---
2ND BAG PRBC INFUSING (SEE BLOOD TRANSFUSION SHEET FOR VS AND TIMES) @ 100MLS/HR. PT IS TOLERATING WELL. WILL CONTINUE TO MONITOR.
--- NOTE | 2019-07-28 17:28 | NUR ---
I have reviewed this patient and I concur with the Shift Assessment completed by the Licensed Practical Nurse today this shift.
[2019-07-28 18:40] LABS: APPEARANCE CLEAR (CLEAR); BILIRUBIN NEGATIVE (NEGATIVE); COLOR YELLOW (YELLOW); GLUCOSE 250 mg/dL (NEGATIVE); KETONE NEGATIVE (NEGATIVE); NITRITE NEGATIVE (NEGATIVE); PROTEIN NEGATIVE (NEGATIVE); UROBILINOGEN NORMAL (NORMAL)
[2019-07-28 20:22] LABS: HEMATOCRIT 30.2 % (36.0-48.0); HEMOGLOBIN 9.9 g/dL (12-16)
--- NOTE | 2019-07-28 20:50 | NUR ---
AMBULATED TO BR AND BACK TO BED. ABD DISTENDED. REPORTS LAST BM TODAY. C/O MILD ABD PAIN. PROTONIX DRIP AND SANDOSTATIN DRIP INFUSING @ 10 MLHR IN RT WRIST AND RT FOREARM. RESP NONLABORED. O2 @ 2L/NC. TELEMETRY SHOWS SR WITH RATE OF 77. SR ELEVATED X2. CL IN REACH. ALERT AND ORIENTED X4.
[2019-07-28 20:58] VITALS: BP 152/76
--- NOTE | 2019-07-28 23:40 | NUR ---
FSBS RECHECKED AND WAS 130. CONSUMED 100% OF BEDTIME SNACK. CL IN REACH. NO DISTRESS.
[2019-07-29] VITALS: BP 156/60
--- NOTE | 2019-07-29 02:04 | NUR ---
HAS RESTED WELL. NO DISTRESS. CL IN REACH.
[2019-07-29 04:00] VITALS: BP 134/81
[2019-07-29 06:19] LABS: BASOPHILS 0.5 % (0-2); EOSINOPHILS 7.7 % (0-7); HEMATOCRIT 27.8 % (36.0-48.0); HEMOGLOBIN 9.1 g/dL (12-16); IMMATURE GRANULOCYTES 0.3 % (0-5); LYMPHOCYTES 17.7 % (15-50); MCH 29.4 pg (26.0-34.0); MCHC 32.7 g/dL (31.0-37.0); MEAN PLATELET VOLUME 11.5 fL (7.4-10.4); MONOCYTES 7.9 % (2-11); NEUTROPHILS 65.9 % (40-80); PLATELET COUNT 83 10x3/uL (130-400); RDW 15.8 % (11.5-14.5); WBC 3.8 10x3/uL (4.8-10.8)
[2019-07-29 06:25] LABS: RBC 3.09 10x6/uL (4.00-5.40)
--- NOTE | 2019-07-29 06:55 | NUR ---
ALERT AND ORIENTED, RESTING IN BED. NO C/O PAIN. NO S/S OF ACUTE DISTRESS NOTED. UP AD LISY. ON 2L O2, NC. 2 IVS TO RIGHT FOREARM, PROTONIX DRIP AND SANDISTATIN INFUSING. SITES PATENT WITHOUT REDNESS OR SWELLING. ON TELEMETRY SR 75. REFUSED SCDS. MAG 1.7 THIS AM, FOLLOWING ELECTROLYTE PROTOCOL. DENIES ANY NEEDS AT THIS TIME. CALL LIGHT IN REACH. WILL CONTINUE TO MONITOR.
[2019-07-29 07:15] LABS: ALBUMIN 2.4 g/dL (3.4-5.0); ANION GAP 14.1 mmol/L (8-16); BILIRUBIN - TOTAL 0.98 mg/dL (0.2-1.3); CALCIUM 8.2 mg/dL (8.5-10.1); CARBON DIOXIDE 23.7 mmol/L (21.0-32.0); CREATININE - SERUM 0.9 mg/dL (0.6-1.3); MAGNESIUM - SERUM 1.7 mg/dL (1.8-2.4); POTASSIUM - SERUM 3.8 mmol/L (3.5-5.1); PROTEIN - SERUM 5.9 g/dL (6.4-8.2)
[2019-07-29 08:52] LABS: PLATELET ESTIMATE DECREASED
[2019-07-29 08:53] LABS: ANISOCYTOSIS OCC; ROULEAUX OCC
[2019-07-29 10:12] VITALS: BP 122/51
[2019-07-29 12:47] VITALS: BP 130/68
[2019-07-29 17:31] VITALS: BP 136/75
--- NOTE | 2019-07-29 17:42 | MORECARE ---
CASE MANAGEMENT DISCHARGE SUMMARY PATIENT: SILVIO PATTEN UNIT: [id number] ADM DATE: 07/26/19 AGE: 69 : 50 SEX: F ROOM/BED: D.2210 AUTHOR: FAUSTODOC PHYSICIAN: REFERRING PHYSICIAN: ANNA DU MD DATE OF SERVICE: 07/29/19 Discharge Plan Patient Name: SILVIO PATTEN Facility: [facility]:[place] : 1950 Planned Disposition: Home Anticipated Discharge Date: Discharge Date: Expected LOS: Initial Reviewer: [email or web address] Initial Review Date: 07/27/2019 Generated: 07/29/19 6:41 pm Comments DCP- Discharge Planning Updated by [email or web address]: Olga Carlton on 07/29/19 4:[address] LATE ENTRY 07/27/19 Patient Name: SILVIO PATTEN Admission Status: ER Accout number: [id number] Admission Date: 07-26-2019 : 1950 Admission Diagnosis: Attending: ANNA DU Current LOS: 3 Anticipated DC Date: Planned Disposition: Home Primary Insurance: [employer] Discharge Planning Comments: CM met with patient to complete initial dc planning assessment. CM educated patient on the CM role and verbal consent given by patient to complete assessment. Patient lives at home with her daughter where she is independent with her care. At discharge patient plans to return home and feels this is a safe discharge. CM discussed availability of home health, rehab services, and medical equipment. Her daughter will be her otr owner operator truck driver home. Patient has a nebulizer and home o2 / portable ( [employer] ) Patient denied known discharge needs at this time. CM will continue to follow and will assist as needed with dc plans/needs. Applique Cutter: Olga Carlton DCPIA - Discharge Planning Initial Assessment Updated by [email or web address]: Olga Carlton on 07/29/19 5:38 pm * Is the patient Alert and Oriented? Yes * How many steps to enter\exit or inside your home? * PCP [facility] * [facility] [place] * Preadmission Environment Home with Family * ADLs Independent * Other Equipment HOME 02 / PORTABLE , NEBULIZER, SHOWER CHAIR * List name and contact numbers for known caregivers / representatives who currently or will assist patient after discharge: JENNIFER LUNDBERG - DAUGHTER - [phone] * Verbal permission to speak to the caregivers and representatives has been obtained from the patient. Yes * Community resources currently utilized None * Additional services required to return to the preadmission environment? No * Can the patient safely return to the preadmission environment? Yes * Has this patient been hospitalized within the prior 30 days at any hospital? No Patient Name: SILVIO PATTEN Page 14683 at 1742 All edits/amendments must be made on the electronic document DICTATION DATE: 07/29/191740 WEATHERIZATION FIELD TECHNICIAN: BALJINDER 07/29/191740 RPT#: [id number] [place] DATE: STATUS: ADM IN [facility] [address] [place] [address] END OF REPORT
--- NOTE | 2019-07-29 18:55 | NUR ---
ALERT AND ORIENTED, RESTING IN BED WITH EYES OPEN. NO C/O PAIN. NO S/S OF ACUTE DISTRESS NOTED. CALL LIGHT IN REACH. DENIES ANY NEEDS. WILL CONTINUE TO MONITOR.
--- NOTE | 2019-07-29 19:45 | NUR ---
SITTING UP IN BED. STATES SHE IS FEELING BETTER. DENIES PAIN. RESP NONLABORED. O2 @2L/NC. TELEMETRY SHOWS SR WITH RATE OF 79. AMBULATORY. REFUSES SCDS. SALINE LOCK X2 NOTED TO RT FOREARM. ALERT AND ORIENTED X4. NO DISTRESS. CL IN REACH.
[2019-07-29 19:59] LABS: HEMOGLOBIN 9.5 g/dL (12-16)
[2019-07-29 20:00] VITALS: BP 137/67
--- NOTE | 2019-07-29 23:00 | NUR ---
CALLED STAFF TO ROOM C/O PAIN IN ONE OF HER SALINE LOCKS IN RT FOREARM. SALINE LOCK REMOVED DUE TO PAIN.
[2019-07-30 05:16] LABS: BASOPHILS 0.6 % (0-2); EOSINOPHILS 9.9 % (0-7); HEMATOCRIT 27.5 % (36.0-48.0); HEMOGLOBIN 8.9 g/dL (12-16); IMMATURE GRANULOCYTES 0.3 % (0-5); LYMPHOCYTES 19.5 % (15-50); MCH 29.3 pg (26.0-34.0); MCHC 32.4 g/dL (31.0-37.0); MCV 90.5 fL (80.0-100.0); MEAN PLATELET VOLUME 10.5 fL (7.4-10.4); MONOCYTES 7.8 % (2-11); NEUTROPHILS 61.9 % (40-80); PLATELET COUNT 89 10x3/uL (130-400); RBC 3.04 10x6/uL (4.00-5.40); WBC 3.3 10x3/uL (4.8-10.8)
[2019-07-30 06:29] LABS: ALBUMIN 2.6 g/dL (3.4-5.0); ANION GAP 12.8 mmol/L (8-16); BILIRUBIN - TOTAL 0.73 mg/dL (0.2-1.3); CALCIUM 8.3 mg/dL (8.5-10.1); CARBON DIOXIDE 26.1 mmol/L (21.0-32.0); CREATININE - SERUM 0.9 mg/dL (0.6-1.3); MAGNESIUM - SERUM 1.8 mg/dL (1.8-2.4); POTASSIUM - SERUM 3.9 mmol/L (3.5-5.1); PROTEIN - SERUM 6.1 g/dL (6.4-8.2)
--- NOTE | 2019-07-30 08:28 | NUR ---
PATIENT RECIEVED FROM PREVIOUS SHIFT RESTING WITH NO NEEDS VOICED. RESPIRATIONS REGULAR AND NONLABORED. O2 2L NC WITH CHRONIC COPD. CL IN REACH. ALERT AND ORIENTED.
--- NOTE | 2019-07-30 09:18 | NUR ---
NUTRITION F/U DIET ADVANCED TO REG DIABETIC. PT WITH 100% INTAKE BREAKFAST THIS AM. SHE IS HOPING FOR DC TODAY. ENCOURAGED PT TO FILL OUT MENU IN CASE SHE DOES NOT GO HOME. RD FOLLOWING
[2019-07-30 09:33] VITALS: BP 128/98
--- NOTE | 2019-07-30 12:16 | MORECARE ---
CASE MANAGEMENT DISCHARGE SUMMARY PATIENT: SILVIO PATTEN UNIT: [id number] ADM DATE: 07/26/19 AGE: 69 : 50 SEX: F ROOM/BED: D.2210 AUTHOR: ROMEO LAMBERT PHYSICIAN: REFERRING PHYSICIAN: ANNA DU MD DATE OF SERVICE: 07/30/19 Discharge Plan Patient Name: SILVIO PATTEN Facility: [facility]:[place] : 1950 Planned Disposition: Home Anticipated Discharge Date: Discharge Date: Expected LOS: Initial Reviewer: [email or web address] Initial Review Date: 07/27/2019 Generated: 07/30/19 1:16 pm Comments DCP- Discharge Planning Updated by [email or web address]: Cherelle Galarza on 07/30/19 11:[address] Patient Name: SILVIO PATTEN Encounter No: [id number] : 1950 [facility] Anticipated DC Date: Planned Disposition: Home External Planned Provider: : DCP follow-up note: Patient and family in agreement with discharge plan. No changes to plan. Case management will follow and assist as needed. Cherelle Galarza DCP- Discharge Planning Updated by [email or web address]: Olga Carlton on 07/29/19 4:[address] LATE ENTRY 07/27/19 Patient Name: SILVIO PATTEN Admission Status: ER Accout number: [id number] Admission Date: 07-26-2019 : 1950 Admission Diagnosis: Attending: ANNA DU Current LOS: 3 Anticipated DC Date: Planned Disposition: Home [facility] Discharge Planning Comments: CM met with patient to complete initial dc planning assessment. CM educated patient on the CM role and verbal consent given by patient to complete assessment. Patient lives at home with her daughter where she is independent with her care. At discharge patient plans to return home and feels this is a safe discharge. CM discussed availability of home health, rehab services, and medical equipment. Her daughter will be her school bus driver home. Patient has a nebulizer and home o2 / portable ( [employer] ) Patient denied known discharge needs at this time. CM will continue to follow and will assist as needed with dc plans/needs. Manager Business Process: Olga Ramosr DCPIA - Discharge Planning Initial Assessment Updated by [email or web address]: Olga Carlton on 07/29/19 5:38 pm * Is the patient Alert and Oriented? Yes * How many steps to enter\exit or inside your home? * PCP [facility] * [facility] * Preadmission Environment Home with Family * ADLs Independent * Other Equipment HOME 02 / PORTABLE , NEBULIZER, SHOWER CHAIR * List name and contact numbers for known caregivers / representatives who currently or will assist patient after discharge: JENNIFER LUNDBERG - DAUGHTER - [phone] * Verbal permission to speak to the caregivers and representatives has been obtained from the patient. Yes * Community resources currently utilized None * Additional services required to return to the preadmission environment? No * Can the patient safely return to the preadmission environment? Yes * Has this patient been hospitalized within the prior 30 days at any hospital? No Coverage Notice Reviewer: [email or web address] Raulito Galarza Notice Issued Date-Time: 07/30/2019 12:13 Notice Type: IM Discharge Notice Notice Delivered To: Patient Relationship to Patient: Self Rough Rice Tender Name: Delivery Method: HAND - Hand Delivered Gardenia Days: Prior Verbal Notification: Recipient Understood Notice: Yes Recipient Signature: Yes Med Rec Note Co-signed by Attending: Coverage Notice Comment: IMM explained, signed, given, copy placed in MR Last DP export: 07/29/19 4:42 pm Patient Name: SILVIO PATTEN Page 11988 at 1216 All edits/amendments must be made on the electronic document DICTATION DATE: 07/30/19 1216 SCOOPING MACHINE TENDER: BALJINDER 07/30/19 1216 RPT#: [id number] DC DATE: STATUS: ADM IN [facility] [address] [place] [address] END OF REPORT
--- NOTE | 2019-07-30 14:14 | NUR ---
IV REMOVED WITH NO REDNESS OR EDEMA AT SITE. DISCHARGE INSTRUCITONS GIVEN WITH PATIENT VOICING UNDERSTANDING. PATIENT TAKEN BY WHEELCHIAR TO PRIVATE CAR
--- NOTE | 2019-07-31 09:56 | MORECARE ---
CASE MANAGEMENT DISCHARGE SUMMARY PATIENT: SILVIO PATTEN UNIT: [id number] ADM DATE: 07/26/19 AGE: 69 : 50 SEX: F ROOM/BED: D.2210 AUTHOR: ROMEO LAMBERT PHYSICIAN: REFERRING PHYSICIAN: ANNA DU MD DATE OF SERVICE: 07/31/19 Discharge Plan Patient Name: SILVIO PATTEN Facility: [facility]:[place] : 1950 Planned Disposition: Home Anticipated Discharge Date: Discharge Date: 07/30/2019 Expected LOS: Initial Reviewer: [email or web address] Initial Review Date: 07/27/2019 Generated: 07/31/19 10:56 am Comments DCP- Discharge Planning Updated by [email or web address]: Cherelle Galarza on 07/30/19 11:[address] Patient Name: SILVIO PATTEN Encounter No: [id number] : 1950 [facility] Anticipated DC Date: Planned Disposition: Home External Planned Provider: : DCP follow-up note: Patient and family in agreement with discharge plan. No changes to plan. Case management will follow and assist as needed. Cherelle Galarza DCP- Discharge Planning Updated by [email or web address]: Olga Carlton on 07/29/19 4:[address] LATE ENTRY 07/27/19 Patient Name: SILVIO PATTEN Admission Status: ER Accout number: [id number] Admission Date: 07-26-2019 : 1950 Admission Diagnosis: Attending: ANNA DU Current LOS: 3 Anticipated DC Date: Planned Disposition: Home [facility] Discharge Planning Comments: CM met with patient to complete initial dc planning assessment. CM educated patient on the CM role and verbal consent given by patient to complete assessment. Patient lives at home with her daughter where she is independent with her care. At discharge patient plans to return home and feels this is a safe discharge. CM discussed availability of home health, rehab services, and medical equipment. Her daughter will be her milk pickup driver home. Patient has a nebulizer and home o2 / portable ( [employer] ) Patient denied known discharge needs at this time. CM will continue to follow and will assist as needed with dc plans/needs. Newspaper Illustrator: Olga Carlton DCPIA - Discharge Planning Initial Assessment Updated by [email or web address]: Olga Carlton on 07/29/19 5:38 pm * Is the patient Alert and Oriented? Yes * How many steps to enter\exit or inside your home? * PCP [facility] * [facility] * Preadmission Environment Home with Family * ADLs Independent * Other Equipment HOME 02 / PORTABLE , NEBULIZER, SHOWER CHAIR * List name and contact numbers for known caregivers / representatives who currently or will assist patient after discharge: JENNIFER LUNDBERG - DAUGHTER - [phone] * Verbal permission to speak to the caregivers and representatives has been obtained from the patient. Yes * Community resources currently utilized None * Additional services required to return to the preadmission environment? No * Can the patient safely return to the preadmission environment? Yes * Has this patient been hospitalized within the prior 30 days at any hospital? No Coverage Notice Reviewer: [id number] Raulito Galarza Notice Issued Date-Time: 07/30/2019 12:13 Notice Type: IM Discharge Notice Notice Delivered To: Patient Relationship to Patient: Self Lead Miner Blasting Name: Delivery Method: HAND - Hand Delivered Gardenia Days: Prior Verbal Notification: Recipient Understood Notice: Yes Recipient Signature: Yes Med Rec Note Co-signed by Attending: Coverage Notice Comment: IMM explained, signed, given, copy placed in MR Last DP export: 07/30/19 11:16 am Patient Name: SILVIO PATTEN Page 55526 at 0956 All edits/amendments must be made on the electronic document DICTATION DATE: 07/31/19955 MULTIMEDIA COORDINATOR: BALJINDER 07/31/19 09 RPT#: [id number] DC DATE:07/30/19 STATUS: DIS IN [facility] [address] [place] [address] END OF REPORT
== END 2019-07-30 14:20 | disposition home or self-care (01) | DRG 441 ==
LOC: D.ER 10:44 → D.MS 12:41 → D.ICU 12:41 → D.MS 07-27 17:01
PROVIDERS: Emergency Medicine; Internal Medicine Gastroenterology; ADMIT Family Medicine; ATTEND Family Medicine
PROC: 06L34CZ Occlusion of Esophageal Vein with Extraluminal Device, Percutaneous Endoscopic Approach (ICD-10-PCS; principal; 2019-07-26 14:20)
DX: K76.6 Portal hypertension (principal); I85.11 Secondary esophageal varices with bleeding; D62 Acute posthemorrhagic anemia; J96.11 Chronic respiratory failure with hypoxia; N17.9 Acute kidney failure, unspecified; K74.60 Unspecified cirrhosis of liver; E11.9 Type 2 diabetes mellitus without complications; K29.70 Gastritis, unspecified, without bleeding; J44.9 Chronic obstructive pulmonary disease, unspecified

== ENCOUNTER 2020-03-24 09:40 | Day surgery (SDC) | payer OTHER, MEDICAID ==
[~2020-03-24] VITALS: Ht 167.6 cm; Wt 68.2 kg
[2020-03-24 10:18] LABS: HEMATOCRIT 34.9 % (36.0-48.0); HEMOGLOBIN 11.4 g/dL (12-16); MCH 30.7 pg (26.0-34.0); MCHC 32.7 g/dL (31.0-37.0); MCV 94.1 fL (80.0-100.0); MEAN PLATELET VOLUME 11.1 fL (7.4-10.4); PLATELET COUNT 72 10x3/uL (130-400); RBC 3.71 10x6/uL (4.00-5.40); RDW 13.6 % (11.5-14.5); WBC 3.6 10x3/uL (4.8-10.8)
[2020-03-24 10:38] LABS: ANION GAP 9.3 mmol/L (8-16); POTASSIUM - SERUM 4.3 mmol/L (3.5-5.1)
[2020-03-24] MEDS ORDERED: GABAPENTIN300 MG PO (10:43)
[2020-03-24] MEDS ORDERED: PROPRANOLOL HCL20 MG PO (10:43)
[2020-03-24] MEDS ORDERED: XIFAXAN200 MG PO (10:44)
[2020-03-24] MEDS ORDERED: EZFE 200200 MG PO (10:44)
[2020-03-24 10:47] VITALS: BP 121/55; Ht 167.6 cm; Wt 68.2 kg
[2020-03-24 13:23] LABS: PLATELET ESTIMATE DECREASED
--- NOTE | 2020-03-24 14:48 | NUR ---
IV D/C'D WITH CANNULA INTACT, PRESSURE APPLIED AND DRSG PLACED. DISCHARGE INSTRUCTIONS GIVEN AN DPT VERBALIZED AN UNDERSTANDING.
--- NOTE | 2020-03-28 15:18 | OP ---
PATIENT NAME: SILVIO PATTEN MEDICAL RECORD: [id number] :[birth year] LOCATION:[facility] ADMISSION DATE: SURGEON: TARA CHA DO DATE OF OPERATION: 03/24/2020 PROCEDURE: EGD with variceal banding. INDICATIONS FOR PROCEDURE: History of esophageal varices. The patient's previous endoscopy was last performed on 09/13/2019 at which time 3 bands were placed. SCOPE: Olympus video gastroscope. MEDICATIONS: Propofol 120 mg IV per anesthesia. ESTIMATED BLOOD LOSS: Minimal. COMPLICATIONS: None. FINDINGS AND DESCRIPTION OF PROCEDURE: Informed consent was given. The patient was made comfortable with the above medication. After reaching an adequate level of sedation by slow IV push, the patient was placed on her left side. The endoscope was advanced under direct visualization through the mouth to the second portion of the duodenum with ease. In the esophagus, there were esophageal varices, which were grade II-III with some high risk stigmata on the most distal band. To eradicate these varices, three bands were placed throughout different levels of the esophagus on the largest varices present. At the GE junction, there were minor changes consistent with some reflux esophagitis. The endoscope was advanced into the stomach and retroflexed to view the cardia and fundus, which did not reveal any gastric varices. Throughout the stomach, there was mild portal hypertensive gastropathy as visualized on previous examinations. The duodenum appeared normal down to the second portion. The endoscope was withdrawn from the patient. The patient tolerated the procedure well and there were no complications. IMPRESSION: 1. Grade II to grade III esophageal varices with some high risk stigmata status post banding times 3. 2. Mild reflux esophagitis. 3. Portal hypertensive gastropathy. PLAN AND RECOMMENDATIONS: 1. Discharge home when recovery parameters are met. 2. Liquid diet times 48 hours followed by soft diet times 48 hours, then regular diet. 3. Continue current medications. 4. Repeat EGD in 8-12 weeks for further surveillance and eradication of varices if indicated. TRANSINT:[id number] Voice Confirmation ID: [id number] DOCUMENT ID: [id number] OPERATIVE REPORT [id number] SILVIO PATTEN TARA CHA DO at 1518 CC: [id number] DICTATION DATE: 03/24/20 1258 HOLISTIC SPECIALIST: 08/28/20 2308 [facility] 03/24/20 [facility] [address] [place] [address]
== END 2020-03-24 13:50 | disposition home or self-care (01) ==
LOC: D.OPS 09:40
PROVIDERS: Anesthesiology; ATTEND Internal Medicine Gastroenterology
DX: R18.8 Other ascites (principal); K74.60 Unspecified cirrhosis of liver; I85.00 Esophageal varices without bleeding; R12 Heartburn; K72.90 Hepatic failure, unspecified without coma; K21.0 Gastro-esophageal reflux disease with esophagitis; K76.6 Portal hypertension; K31.89 Other diseases of stomach and duodenum

== ENCOUNTER 2020-10-30 04:30 | Inpatient (IN) | payer OTHER, MEDICAID ==
[~2020-10-30] VITALS: Ht 167.6 cm; Wt 67.5 kg
[2020-10-30] VITALS (13 sets, daily range): BP systolic 105–149; BP diastolic 54–76; Ht 167.6 cm; Wt 67.5 kg
[~2020-10-30 04:30] MED LIST changes: +EZFE 200200 MG PO; +GABAPENTIN300 MG PO; +PROPRANOLOL HCL20 MG PO; +XIFAXAN200 MG PO
[2020-10-30] MEDS ORDERED: NEURONTIN600 MG PO (04:33)
[2020-10-30 05:24] LABS: BASOPHILS 0.4 % (0-2); EOSINOPHILS 3.2 % (0-7); HEMATOCRIT 28.8 % (36.0-48.0); HEMOGLOBIN 9.3 g/dL (12-16); IMMATURE GRANULOCYTES 0.2 % (0-5); LYMPHOCYTE ABS# 1.12 10x3/uL (1.18-3.74); LYMPHOCYTES 11.4 % (15-50); MCH 30.6 pg (26.0-34.0); MCHC 32.3 g/dL (31.0-37.0); MCV 94.7 fL (80.0-100.0); MEAN PLATELET VOLUME 11.5 fL (7.4-10.4); MONOCYTES 7.1 % (2-11); NEUTROPHIL ABS# 7.64 10x3/uL (1.56-6.13); NEUTROPHILS 77.7 % (40-80); RBC 3.04 10x6/uL (4.00-5.40); RDW 15.1 % (11.5-14.5); WBC 9.8 10x3/uL (4.8-10.8)
[2020-10-30 05:26] LABS: PLATELET COUNT 152 10x3/uL (130-400)
[2020-10-30 05:36] LABS: APTT 32.7 SECONDS (22.8-39.4); INR 1.25 (0.85-1.17); PROTIME 14.5 SECONDS (11.6-15.0)
[2020-10-30 05:44] LABS: ANION GAP 10.2 mmol/L (8-16); CALCIUM 9.3 mg/dL (8.5-10.1); CARBON DIOXIDE 28.7 mmol/L (21.0-32.0); CREATININE - SERUM 1.2 mg/dL (0.6-1.3); POTASSIUM - SERUM 4.9 mmol/L (3.5-5.1)
[2020-10-30 05:50] LABS: ALBUMIN 2.7 g/dL (3.4-5.0); BILIRUBIN - TOTAL 0.71 mg/dL (0.2-1.3); PROTEIN - SERUM 6.5 g/dL (6.4-8.2)
--- NOTE | 2020-10-30 07:29 | NUR ---
RECIEVED BEDSIDE REPORT. IV INFUSING PER MAR. LAB IN ROOM DRAWING BLOOD. ALERT, DENIES NEEDS AT THIS TIME. BED LOW POSITION, CALL LIGHT IN REACH. NASAL CANNULA AT 3L. PATIENT WANTS TO REST AT THIS TIME. WILL CONTINUE TO MONITOR.
[2020-10-30 07:45] LABS: HEMATOCRIT 28.7 % (36.0-48.0); HEMOGLOBIN 9.3 g/dL (12-16)
[2020-10-30 07:46] LABS: HEMATOCRIT 28.6 % (36.0-48.0); HEMOGLOBIN 9.2 g/dL (12-16)
--- NOTE | 2020-10-30 12:50 | NUR ---
PATIENT TO PROCEDURE AT THIS TIME.
[2020-10-30 13:02] LABS: HEMATOCRIT 27.8 % (36.0-48.0)
--- NOTE | 2020-10-30 14:17 | NUR ---
IV WENT BAD RIGHT BEFORE SURGERY. NEW IV PLACED IN LEFT FOREARM 20 GAUGE.
[2020-10-31] VITALS (8 sets, daily range): BP systolic 100–119; BP diastolic 48–92
[2020-10-31 00:58] LABS: HEMATOCRIT 21.3 % (36.0-48.0)
[2020-10-31 01:32] LABS: HEMATOCRIT 21.7 % (36.0-48.0)
--- NOTE | 2020-10-31 01:52 | NUR ---
Did speak to pt regarding her Critical H&H. Education provided on need for blood transfusion. Pt agreeable to same and consent is signed in chart. Pt asked if she would like to call family or have this nurse call and pt stated no. Pt will notify family in the morning. VSS.
[2020-10-31 05:39] LABS: BASOPHILS 0.6 % (0-2); EOSINOPHILS 2.7 % (0-7); HEMATOCRIT 23.7 % (36.0-48.0); HEMOGLOBIN 7.7 g/dL (12-16); IMMATURE GRANULOCYTES 0.1 % (0-5); LYMPHOCYTE ABS# 1.27 10x3/uL (1.18-3.74); LYMPHOCYTES 17.8 % (15-50); MCH 30.6 pg (26.0-34.0); MCHC 32.5 g/dL (31.0-37.0); MEAN PLATELET VOLUME 10.6 fL (7.4-10.4); MONOCYTES 10.5 % (2-11); NEUTROPHIL ABS# 4.87 10x3/uL (1.56-6.13); NEUTROPHILS 68.3 % (40-80); RBC 2.52 10x6/uL (4.00-5.40); RDW 15.5 % (11.5-14.5)
[2020-10-31 05:41] LABS: PLATELET COUNT 101 10x3/uL (130-400); WBC 7.1 10x3/uL (4.8-10.8)
[2020-10-31 05:43] LABS: ALBUMIN 2.5 g/dL (3.4-5.0); ANION GAP 8.8 mmol/L (8-16); BILIRUBIN - TOTAL 0.58 mg/dL (0.2-1.3); CALCIUM 8.8 mg/dL (8.5-10.1); CARBON DIOXIDE 28.5 mmol/L (21.0-32.0); CREATININE - SERUM 1.2 mg/dL (0.6-1.3); POTASSIUM - SERUM 4.3 mmol/L (3.5-5.1); PROTEIN - SERUM 5.7 g/dL (6.4-8.2)
--- NOTE | 2020-10-31 07:37 | NUR ---
Pt did have a critical lab result t/o the night. was called and order recieved. PRBC administering 2nd unit at this time, per order. Pt did have a large black stool, incontinent. Pt's urine is also very dark brown. Pt's VSS and she is tolerating transfusion well.
--- NOTE | 2020-10-31 08:10 | NUR ---
UNIT 2 OF 2 PRBC COMPLETE. NO ADVERSE REACTIONS NOTED. TOLERATED WELL. V/S STABLE.
--- NOTE | 2020-10-31 16:28 | NUR ---
NOTIFIED STAFF DEVELOPMENT COORDINATOR OF PATIENT AND DAUGHTER CONCERNS WITH HER C/O ABD PAIN AND HX OF GALLBLADDER ISSUES. STATED SHE WILL ORDER A KUB.
--- NOTE | 2020-10-31 18:30 | NUR ---
ONE UNIT OF PRBC INITIATED WILL CONTINUE TO MONITOR.
--- NOTE | 2020-10-31 19:45 | NUR ---
RECEIVED BEDSIDE REPORT. PT LAYING IN BED A&O X4. PIV TO LEFT WRIST PATENT AND INFUSING, NO REDNESS OR SWELLLING. 02 SAT 99% ON 3L VIA NC. EDUCATED PT ON CL AND NEEDS, VERBALIZED UNDERSTANDING. BED LOW, CL IN REACH.
[2020-11-01] VITALS: BP 120/60
[2020-11-01 04:00] VITALS: BP 111/49
[2020-11-01 06:08] LABS: BASOPHILS 0.2 % (0-2); EOSINOPHILS 4.5 % (0-7); LYMPHOCYTE ABS# 0.76 10x3/uL (1.18-3.74); LYMPHOCYTES 17.2 % (15-50); MCH 29.8 pg (26.0-34.0); MCHC 32.6 g/dL (31.0-37.0); MEAN PLATELET VOLUME 10.9 fL (7.4-10.4); NEUTROPHIL ABS# 3.06 10x3/uL (1.56-6.13); NEUTROPHILS 69.1 % (40-80); RDW 17.1 % (11.5-14.5)
[2020-11-01 06:21] LABS: HEMATOCRIT 30.7 % (36.0-48.0); MCV 91.4 fL (80.0-100.0); PLATELET COUNT 71 10x3/uL (130-400); RBC 3.36 10x6/uL (4.00-5.40); WBC 4.4 10x3/uL (4.8-10.8)
[2020-11-01 06:39] LABS: ALBUMIN 2.5 g/dL (3.4-5.0); ANION GAP 8.5 mmol/L (8-16); BILIRUBIN - TOTAL 0.78 mg/dL (0.2-1.3); CALCIUM 8.6 mg/dL (8.5-10.1); CARBON DIOXIDE 27.1 mmol/L (21.0-32.0); POTASSIUM - SERUM 4.6 mmol/L (3.5-5.1); PROTEIN - SERUM 5.7 g/dL (6.4-8.2)
[2020-11-01 07:11] LABS: BILIRUBIN NEGATIVE (NEGATIVE); KETONE NEGATIVE (NEGATIVE); NITRITE NEGATIVE (NEGATIVE); UROBILINOGEN NORMAL mg/dL (< 2)
--- NOTE | 2020-11-01 07:35 | NUR ---
RESTING IN BED WITH EYES CLOSED, EASILY AROUSED TO SPEECH, ALERT AND ORIENTED. CURRENTLY RCVING 3L VIA NC. IV LOCATED TO LEFT WRIST CURRENTLY RUNNING NS @ 50, PROTONIX @ 10ML. NO CURRENT S/S OF DISTRESS, DENIES NEEDS AT THIS TIME, WILL CONT TO MONITOR.
[2020-11-01 07:54] LABS: PLATELET ESTIMATE DECREASED
[2020-11-01 07:56] LABS: ROULEAUX OCC; SMUDGE CELLS OCC
[2020-11-01 09:08] VITALS: BP 103/53
--- NOTE | 2020-11-01 13:32 | NUR ---
RESUMED CARE OF PT. BED LOW POSITION, CALL LIGHT IN REACH. PT RESTING AT THIS TIME. WILL CONTINUE TO MONITOR.
[2020-11-01 14:48] VITALS: BP 121/58
[2020-11-01 17:47] VITALS: BP 109/45
[2020-11-01 20:00] VITALS: BP 115/69
--- NOTE | 2020-11-01 22:44 | NUR ---
PT RESTING IN BED. NO COMPLAINTS OF PAIN NOR DISTRESS AT THIS TIME. BED IN LOWEST POSITION. CALL LIGHT IN REACH. O2 VIA NASAL CANNULA AT 3L
[2020-11-02 04:00] VITALS: BP 121/53
[2020-11-02 06:26] LABS: BASOPHILS 0.2 % (0-2); EOSINOPHILS 4.6 % (0-7); HEMATOCRIT 30.8 % (36.0-48.0); HEMOGLOBIN 9.9 g/dL (12-16); LYMPHOCYTE ABS# 0.75 10x3/uL (1.18-3.74); LYMPHOCYTES 16.3 % (15-50); MCH 30.2 pg (26.0-34.0); MCHC 32.1 g/dL (31.0-37.0); MEAN PLATELET VOLUME 11.7 fL (7.4-10.4); MONOCYTES 8.9 % (2-11); NEUTROPHIL ABS# 3.23 10x3/uL (1.56-6.13); PLATELET COUNT 73 10x3/uL (130-400); RBC 3.28 10x6/uL (4.00-5.40); RDW 16.4 % (11.5-14.5); WBC 4.6 10x3/uL (4.8-10.8)
[2020-11-02 06:29] LABS: ALBUMIN 2.6 g/dL (3.4-5.0); ALKALINE PHOSPHATASE 77 U/L (30-120); ALT (SGPT) 34 U/L (10-68); BILIRUBIN - TOTAL 0.79 mg/dL (0.2-1.3); CALC OSMOLALITY 282 mosm/kg (275-300); CALCIUM 8.7 mg/dL (8.5-10.1); CARBON DIOXIDE 23.5 mmol/L (21.0-32.0); CHLORIDE - SERUM 107 mmol/L (98-107); CREATININE - SERUM 0.8 mg/dL (0.6-1.3); GLUCOSE 107 mg/dL (74-106); POTASSIUM - SERUM 4.5 mmol/L (3.5-5.1); PROTEIN - SERUM 5.5 g/dL (6.4-8.2); SODIUM 139 mmol/L (136-145); eGFR NON AFRICAN AMERICAN 75 mL/min (90-120)
[2020-11-02 06:30] LABS: UREA NITROGEN 26 mg/dL (7-18)
[2020-11-02 06:39] LABS: MCV 93.9 fL (80.0-100.0)
[2020-11-02 08:53] VITALS: BP 97/58
[2020-11-02 12:28] VITALS: BP 133/71
--- NOTE | 2020-11-02 13:46 | NUR ---
Nutrition follow-up: Visited with pt during breakfast. Pt requested vanilla Ensure; provided Diet advanced to full liquids. PO intake poor at this time - ~25% of meals Labs reviewed Wt: 148# Will continue to monitor patients progress toward nutrition goals. Follow-up: 11/07/20
[2020-11-02 15:49] VITALS: BP 128/59
--- NOTE | 2020-11-02 17:09 | MORECARE ---
CASE MANAGEMENT DISCHARGE SUMMARY PATIENT: SILVIO PATTEN UNIT: [id number] ADM DATE: 10/30/20 AGE: 70 : 50 SEX: F ROOM/BED: D.2234 AUTHOR: FAUSTO,DOC PHYSICIAN: REFERRING PHYSICIAN: TABITHA HICKEY MD DATE OF SERVICE: 11/02/20 Case Management Discharge Planning Summary COMMENTS ENTERED DATE: 11/02/20 17:06 CT COMMENT TYPE: Discharge Planning REVIEWER: Breana Boyd CM met with patient at bedside after obtaining verbal consent. CM discussed availability / needs of home health, REHAB and medical equipment. PATIENT STATES WALKER, NEBS, OXYGEN AND PORTABLE OXYGEN DME AT HOME. NOT CURRENTLY USING HOME HEALTH. STATES DAUGHTER IS STAYING WITH HER AND SHE DOES NOT WANT HOME HEALTH AT THIS TIME. I GAVE HER MY CONTACT INFORMATION IN CASE SHE CHANGES HER MIND. DAUGHTER WILL PICK HER UP TODAY. IMM SIGNED AND COPY ON CHART. CM TO FOLLOW AND ASSIST NEEDED. DCP REVIEW SUMMARY ANTICIPATED D/C DATE: EXPECTED LOS : CASE STATUS: DCP Initiated INITIAL REVIEW: 10/30/2020 INITIAL REVIEWER: Breana Boyd FINAL DISCHARGE DISPOSITION: : FINAL REVIEWER: FINAL REVIEW DATE: DCP Focus Questions & Answers QUESTION: ANSWER : PATIENT: SILVIO PATTEN ENCOUNTER: [id number] MEDICAL RECORD#: [id number] ADMISSION DATE: 10/30/2020 DISCHARGE DATE: ATTENDING MD: TABITHA VALDEZ : AGE: 70 MARITAL STATUS: D DC PLAN ID: [id number] FACILITY: [facility] PRINTED ON: 11/02/20 17:09 CT All edits/amendments must be made on the electronic document DICTATION DATE: 11/02/201708 MAINTAINABILITY ENGINEER: DM 11/02/201708 RPT#: [id number] DC DATE: STATUS: ADM IN [place] [address] [place] [address] END OF REPORT
== END 2020-11-02 17:40 | disposition home or self-care (01) | DRG 432 ==
LOC: D.ER 04:30 → D.MS 06:05
PROVIDERS: Family Medicine; Internal Medicine Gastroenterology; ADMIT Emergency Medicine; ATTEND Emergency Medicine
PROC: 06L38CZ Occlusion of Esophageal Vein with Extraluminal Device, Via Natural or Artificial Opening Endoscopic (ICD-10-PCS; principal; 2020-10-30 12:45)
DX: K74.60 Unspecified cirrhosis of liver (principal); I85.11 Secondary esophageal varices with bleeding; R04.2 Hemoptysis; K76.6 Portal hypertension; D62 Acute posthemorrhagic anemia; D64.9 Anemia, unspecified; K31.89 Other diseases of stomach and duodenum; E11.65 Type 2 diabetes mellitus with hyperglycemia; E11.40 Type 2 diabetes mellitus with diabetic neuropathy, unspecified; I10 Essential (primary) hypertension; K21.9 Gastro-esophageal reflux disease without esophagitis; J44.9 Chronic obstructive pulmonary disease, unspecified; F12.90 Cannabis use, unspecified, uncomplicated; M19.90 Unspecified osteoarthritis, unspecified site

== ENCOUNTER 2020-11-18 05:34 | Inpatient (IN) | payer OTHER, MEDICAID ==
[~2020-11-18] VITALS: Ht 167.6 cm; Wt 63.5 kg
[2020-11-18] VITALS (10 sets, daily range): BP systolic 129–157; BP diastolic 63–88; BMI 22.6
[~2020-11-18 05:34] MED LIST changes: +NEURONTIN600 MG PO
[2020-11-18 06:03] LABS: BASOPHILS 0.3 % (0-2); EOSINOPHILS 3.9 % (0-7); HEMATOCRIT 34.8 % (36.0-48.0); HEMOGLOBIN 11.5 g/dL (12-16); IMMATURE GRANULOCYTES 0.1 % (0-5); LYMPHOCYTE ABS# 0.64 10x3/uL (1.18-3.74); LYMPHOCYTES 8.9 % (15-50); MCH 30.1 pg (26.0-34.0); MCV 91.1 fL (80.0-100.0); MEAN PLATELET VOLUME 11.9 fL (7.4-10.4); MONOCYTES 10.1 % (2-11); NEUTROPHIL ABS# 5.52 10x3/uL (1.56-6.13); NEUTROPHILS 76.7 % (40-80); RBC 3.82 10x6/uL (4.00-5.40); RDW 15.6 % (11.5-14.5); WBC 7.2 10x3/uL (4.8-10.8)
[2020-11-18 06:10] LABS: PLATELET COUNT 123 10x3/uL (130-400)
[2020-11-18 06:18] LABS: APTT 36.6 SECONDS (22.8-39.4); INR 1.21 (0.85-1.17); PROTIME 14.1 SECONDS (11.6-15.0)
[2020-11-18 06:28] LABS: ANION GAP 12.5 mmol/L (8-16); CALCIUM 9.4 mg/dL (8.5-10.1); CARBON DIOXIDE 25.7 mmol/L (21.0-32.0); CREATININE - SERUM 1.1 mg/dL (0.6-1.3); POTASSIUM - SERUM 4.2 mmol/L (3.5-5.1)
[2020-11-18 06:34] LABS: ALBUMIN 2.9 g/dL (3.4-5.0); BILIRUBIN - TOTAL 0.63 mg/dL (0.2-1.3); PROTEIN - SERUM 7.4 g/dL (6.4-8.2)
[2020-11-18 06:58] LABS: AMYLASE - SERUM 53 U/L (25-115); LIPASE 144 U/L (73-393)
--- NOTE | 2020-11-18 07:30 | NUR ---
GUIAC NEGATIVE ON PT
--- NOTE | 2020-11-18 08:50 | NUR ---
ASSISTED UP TO BSC. VOIDED 150ML CLEAR YELLOW URINE. NOTED THAT THERE WAS NOT A URINALYSIS ORDERED.
--- NOTE | 2020-11-18 10:40 | NUR ---
PATIENT ASKING WHEN A ROOM WOULD BE AVAILABLE. COMPLAINING OF DISCOMFORT FROM STRETCHER.
[2020-11-18 12:23] LABS: HEMATOCRIT 31.5 % (36.0-48.0); HEMOGLOBIN 10.5 g/dL (12-16)
--- NOTE | 2020-11-18 13:10 | NUR ---
PT ARRIVED VIA STRECHER FROM ER. ALERT AND ORIENTED. ABLE TO ANSWER MOST QUESTIONS APPROPRIATELY. STATES SHE IS TIRED FROM BEING UP ALL NIGHT R/T NAUSEA. GROGGY, BUT SPONTANEOUSLY OPENS EYES AND EASILY UNDERSTANDABLE SPEECH BUTLER. RIGHT AND LEFT FOREARM 20G IV'S INFUSING, BOTH PATENT. SEE FLOWSHEET FOR FURTHER DETAILS. ALL VSS AT THIS TIME. DENIES NEEDS OR PAIN AT THIS MOMENT. SPOKE WITH DAUGHTER ON PT'S CELL PHONE PER REQUEST. MEDICAL CODE GIVEN AND UPDATED ON POC. VERBALIZED UNDERSTANDING. BED IN LOWEST POSITION. CALL LIGHT WITHIN REACH. BED RAILS UP X2.
[2020-11-18 17:29] LABS: HEMATOCRIT 31.8 % (36.0-48.0); HEMOGLOBIN 10.5 g/dL (12-16)
--- NOTE | 2020-11-18 20:00 | NUR ---
REC'D REPORT FROM OFF GOING AND ASSUMED CARE. INITIAL ASSESSMENT COMPLETED AND RECORDED PER FLOW SHEET. LEFT AND RIGHT PIV PATENT WITH NS @ 100 ML/HR AND ZOFRAN DRIP TO LEFT FOREARM AND SANDOSTATIN GTT AND PROTONIX DRIP TO RIGHT FOREARM PIV. BOTH SITES PATENT WITH NO REDNESS AND EDEMA. LUNGS DIMINISHED BILATERALLY. VOIDING IN BSC WITH MIN ASSISTANCE.WILL INITIATE PLAN OF CARE AND MONITOR FOR BLEEDING.
[2020-11-19] VITALS (15 sets, daily range): BP systolic 120–161; BP diastolic 53–82
--- NOTE | 2020-11-19 | NUR ---
HAS BEEN UP TO BSC A COUPLE OF MORE TIMES. AFTER ONE SUCH USE, C/O SOB. REVIEW OF HOME MED REC SHOWED THAT SHE HAD RESP TX AT HOME. CALL PUT INTO Sherrie LOWE APRN FOR A PRN ORDER, NOTIFIED RESP OF NEED FOR TX. REPORTED RELIEF AFTER TX. GIVEN INCENTIVE SPIROMETER TO USE ONCE SHE WOKE UP IN THE MORNING.
[2020-11-19 00:43] LABS: HEMATOCRIT 31.7 % (36.0-48.0); HEMOGLOBIN 10.4 g/dL (12-16)
--- NOTE | 2020-11-19 03:00 | NUR ---
HAS BEEN LYING QUIETLY W/O SIGNS OF DISTRESS. O2 SATS UPPER 90S. CONT TO MONITOR FOR BLEEDING WITH NO SIGNS OF ANY TO PRESENT.
[2020-11-19 04:32] LABS: BASOPHILS 0.4 % (0-2); EOSINOPHILS 3.5 % (0-7); HEMOGLOBIN 10.5 g/dL (12-16); IMMATURE GRANULOCYTES 0.2 % (0-5); LYMPHOCYTE ABS# 0.54 10x3/uL (1.18-3.74); LYMPHOCYTES 10.6 % (15-50); MCHC 32.8 g/dL (31.0-37.0); MCV 91.4 fL (80.0-100.0); MEAN PLATELET VOLUME 11.3 fL (7.4-10.4); MONOCYTES 9.6 % (2-11); NEUTROPHIL ABS# 3.85 10x3/uL (1.56-6.13); NEUTROPHILS 75.7 % (40-80); PLATELET COUNT 116 10x3/uL (130-400); RDW 15.5 % (11.5-14.5)
[2020-11-19 04:46] LABS: ANION GAP 12.5 mmol/L (8-16); CALCIUM 8.8 mg/dL (8.5-10.1); CARBON DIOXIDE 23.8 mmol/L (21.0-32.0); CREATININE - SERUM 1.1 mg/dL (0.6-1.3); POTASSIUM - SERUM 4.3 mmol/L (3.5-5.1)
[2020-11-19 04:49] LABS: WBC 5.1 10x3/uL (4.8-10.8)
--- NOTE | 2020-11-19 06:41 | NUR ---
UP TO BSC AT THIS TIME. VOLUME OF URINE HAS DECREASED DOWN TO 150 - 200 ML AT A TIME. HAVE NOT ENDED UP PUTTING SCDS ON BECAUSE SHE HAS BEEN UP SO FREQUENTLY WITHOUT MUCH ASSISTANCE EXCEPT TO MONITOR IV LINES AND MONITORING CABLES, WOULD HAVE PRODUCED ANOTHER FALL HAZARD.
[2020-11-19 11:38] LABS: HEMATOCRIT 31.7 % (36.0-48.0); HEMOGLOBIN 10.5 g/dL (12-16)
--- NOTE | 2020-11-19 14:00 | NUR ---
REPORT CALLED TO DORINA. PATIENT TRANSFERED PER WHEEL CHAIR TO ROOM 2239. TOLERATED FAIR. PATIENT DOES GET SHORT OF BREATH ON EXERTION. TRANSFERED WITH OXYGEN
[2020-11-19 17:28] LABS: HEMATOCRIT 32.7 % (36.0-48.0); HEMOGLOBIN 10.9 g/dL (12-16)
--- NOTE | 2020-11-19 18:39 | NUR ---
REFUSED DINNER TRAY. DOESN'T EAT TOMATOES. OFFERED SANDWICH TRAY. SHE SAID MAYBE LATER. FSBS WAS 213. GIVEN 4 UNITS REGULAR SUBQ PER SS. NO CHANGES NOTED. DENIES NEEDS.
[2020-11-20 00:51] LABS: HEMATOCRIT 31.5 % (36.0-48.0); HEMOGLOBIN 10.3 g/dL (12-16)
[2020-11-20 06:57] LABS: HEMATOCRIT 31.5 % (36.0-48.0); HEMOGLOBIN 10.3 g/dL (12-16)
--- NOTE | 2020-11-20 08:23 | NUR ---
PATIENT ANXIOUS TO BE DC, WANTED IV'S TO BE REMOVED, EXPLAINED WE ARE STILL WAITING ON DOCTORS TO MAKE ROUNDS AND AGREE PATIENT IS READY FOR DC. NO OTHER NEEDS AT THIS TIME. CONTINUE WITH PLAN OF CARE
[2020-11-20 08:52] VITALS: BP 147/72
--- NOTE | 2020-11-20 11:39 | NUR ---
I have reviewed this patient and I concur with the Shift Assessment completed by the Licensed Practical Nurse today this shift.
[2020-11-20 12:02] LABS: ALBUMIN 2.6 g/dL (3.4-5.0); ANION GAP 13.7 mmol/L (8-16); BILIRUBIN - TOTAL 0.64 mg/dL (0.2-1.3); CALCIUM 8.7 mg/dL (8.5-10.1); CARBON DIOXIDE 24.2 mmol/L (21.0-32.0); POTASSIUM - SERUM 3.9 mmol/L (3.5-5.1); PROTEIN - SERUM 6.3 g/dL (6.4-8.2)
[2020-11-20 12:48] VITALS: BP 141/60
[2020-11-20] MEDS ORDERED: MUPIROCIN22 GM NASAL (13:31)
[2020-11-20 13:43] VITALS: Ht 167.6 cm; Wt 63.5 kg
--- NOTE | 2020-11-20 14:21 | MORECARE ---
CASE MANAGEMENT DISCHARGE SUMMARY PATIENT: SILVIO PATTEN UNIT: [id number] ADM DATE: 11/18/20 AGE: 70 : 50 SEX: F ROOM/BED: D.[facility]9 AUTHOR: FAUSTO,DOC PHYSICIAN: REFERRING PHYSICIAN: JOY KRAMER MD DATE OF SERVICE: 11/20/20 Case Management Discharge Planning Summary COMMENTS ENTERED DATE: 11/20/20 14:13 CT COMMENT TYPE: Discharge Planning REVIEWER: Breana Boyd CM met with patient at bedside after obtaining verbal consent. CM discussed availability / needs of home health, REHAB and medical equipment. Patient denies any dc needs. Has home oxygen, portable oxygen and nebs at home. Patient to dc to home today and her daughter will pick her up. I gave her my contact information. CM to follow and assist as needed. DCP REVIEW SUMMARY ANTICIPATED D/C DATE: EXPECTED LOS : CASE STATUS: DCP Initiated INITIAL REVIEW: 11/18/2020 INITIAL REVIEWER: Breana Boyd FINAL DISCHARGE DISPOSITION: : FINAL REVIEWER: FINAL REVIEW DATE: DCP Focus Questions & Answers QUESTION: ANSWER : PATIENT: SILVIO PATTEN ENCOUNTER: [id number] MEDICAL RECORD#: [id number] ADMISSION DATE: 11/18/2020 DISCHARGE DATE: ATTENDING MD: : AGE: 70 MARITAL STATUS: D DC PLAN ID: [id number] FACILITY: [facility] PRINTED ON: 11/20/20 14:21 CT All edits/amendments must be made on the electronic document DICTATION DATE: 11/20/201420 LUCERNE FARMER: BALJINDER 11/20/201420 RPT#: [id number] DC DATE: STATUS: ADM IN [facility] [address] [place] [address] END OF REPORT
--- NOTE | 2020-11-20 16:49 | MORECARE ---
CASE MANAGEMENT DISCHARGE SUMMARY PATIENT: SILVIO PATTEN UNIT: [id number] ADM DATE: 11/18/20 AGE: 70 : 50 SEX: F ROOM/BED: D.[facility]9 AUTHOR: FAUSTO,DOC PHYSICIAN: REFERRING PHYSICIAN: JOY KRAMER MD DATE OF SERVICE: 11/20/20 Case Management Discharge Planning Summary COMMENTS ENTERED DATE: 11/20/20 14:13 CT COMMENT TYPE: Discharge Planning REVIEWER: Breana Boyd CM met with patient at bedside after obtaining verbal consent. CM discussed availability / needs of home health, REHAB and medical equipment. Patient denies any dc needs. Has home oxygen, portable oxygen and nebs at home. Patient to dc to home today and her daughter will pick her up. I gave her my contact information. CM to follow and assist as needed. DCP REVIEW SUMMARY ANTICIPATED D/C DATE: EXPECTED LOS : CASE STATUS: DCP Initiated INITIAL REVIEW: 11/18/2020 INITIAL REVIEWER: Breana Boyd FINAL DISCHARGE DISPOSITION: : FINAL REVIEWER: FINAL REVIEW DATE: DCP Focus Questions & Answers QUESTION: ANSWER : PATIENT: SILVIO PATTEN ENCOUNTER: [id number] MEDICAL RECORD#: [id number] ADMISSION DATE: 11/18/2020 DISCHARGE DATE: 11/20/2020 ATTENDING MD: EMRE: AGE: 70 MARITAL STATUS: D DC PLAN ID: [id number] FACILITY: [facility] PRINTED ON: 11/20/20 16:49 CT All edits/amendments must be made on the electronic document DICTATION DATE: 11/20/201648 CHIEF COMMUNICATIONS OFFICER: BALJINDER 11/20/201648 RPT#: [id number] DC DATE:11/20/20 STATUS: DIS IN [facility] [address] [place] [address] END OF REPORT
== END 2020-11-20 16:48 | disposition home or self-care (01) | DRG 432 ==
LOC: D.ER 05:34 → D.MS 07:18 → D.ICU 07:18 → D.MS 11-19 14:23
PROVIDERS: Emergency Medicine; Family Medicine; ADMIT Family Medicine; ATTEND Family Medicine
DX: K74.60 Unspecified cirrhosis of liver (principal); I85.11 Secondary esophageal varices with bleeding; D62 Acute posthemorrhagic anemia; E72.20 Disorder of urea cycle metabolism, unspecified; E87.1 Hypo-osmolality and hyponatremia; J96.11 Chronic respiratory failure with hypoxia; J44.9 Chronic obstructive pulmonary disease, unspecified; I10 Essential (primary) hypertension; E11.65 Type 2 diabetes mellitus with hyperglycemia; Z87.891 Personal history of nicotine dependence; F10.21 Alcohol dependence, in remission